=== PATIENT | male | born 1950 | race Caucasian/White ===

== ENCOUNTER 2018-06-13 16:49 | Inpatient (IN) ==
[2018-06-13] MEDS ORDERED: Sod Chloride 0.9% Inj 1,000 ML IV.CONT SCH (17:45)
[2018-06-13 18:05] LABS: Hematocrit 41.7 % (39.0-51.0); Hemoglobin 13.8 gm/dL (13.0-17.0); Mean Corpuscular HGB Conc 33.2 % (32.0-36.0); Mean Corpuscular Hemoglobin 28.6 pg (27.0-34.0); Mean Corpuscular Volume 86.3 fL (80.0-100.0); Mean Platelet Volume 9.4 fL (7.0-11.0); Platelet Count 300 th/mm3 (150-450); Red Blood Count 4.83 mil/mm3 (4.50-5.90); Red Cell Distribution Width 16.2 % (11.6-17.2); White Blood Count 10.8 th/mm3 (4.0-11.0)
[2018-06-13 18:06] LABS: Bilirubin,Urine Large (Negative); Clarity,Urine Cloudy (Clear); Glucose,Urine (UA) 100 mg/dL (Negative); Leukocyte Esterase,Urine Negative (Negative); Nitrite,Urine Positive (Negative); Specific Gravity,Urine 1.025 (1.002-1.035)
[2018-06-13 18:07] LABS: Color,Urine Brown (Yellw/Straw)
[2018-06-13 18:08] LABS: Ictotest,Urine Positive (Negative)
[2018-06-13 18:11] LABS: RBC,Urine 0-3 /hpf (0-3)
[2018-06-13 18:12] LABS: Amorphous Sediment,Urine Few /hpf; Bacteria,Urine Moderate /hpf; Squamous Epithelial Cell,Urine 0-5 /hpf (0-5)
[2018-06-13 18:13] LABS: Hyaline Casts,Urine 0-3 /lpf (0-3); Mucus,Urine Many /lpf (Occasional)
--- NOTE | 2018-06-13 18:15 | XR ---
EXAM DATE: 06/13/2018 6:00 PM EST AGE/SEX: 67 years / Male INDICATIONS: Abdominal pain, weakness for 1 week CLINICAL DATA: This is the patient's initial encounter. Patient reports that signs and symptoms have been present for 1 week and indicates a pain score of 0/10. MEDICAL/SURGICAL HISTORY: Carcinoma, colon. None. COMPARISON: No prior exams available for comparison. FINDINGS: A single AP view of the chest demonstrates the lungs to be symmetrically aerated without evidence of mass, infiltrate or effusion. The cardiomediastinal contours are unremarkable. Osseous structures a re intact. CONCLUSION: Negative noncontrast head CT. Electronically signed by: Tomás Olivares MD 06/13/2018 6:14 PM EST
[2018-06-13 18:17] LABS: Chloride 98 meq/L (98-107); Potassium 3.8 meq/L (3.5-5.1); Sodium 136 meq/L (136-145)
[2018-06-13 18:20] LABS: Calcium 8.8 mg/dL (8.5-10.1)
[2018-06-13 18:21] LABS: Albumin 2.8 g/dL (3.4-5.0); Anion Gap 12 meq/L (5-15); Blood Urea Nitrogen 19 mg/dL (7-18); Carbon Dioxide 26.5 meq/L (21.0-32.0); Glucose,Random 79 mg/dL (74-106); Lipase 1269 U/L (73-393); Magnesium 1.9 mg/dL (1.5-2.5)
[2018-06-13 18:24] LABS: Alanine Aminotransferase 134 U/L (12-78); Aspartate Aminotransferase 322 U/L (15-37); Glomerular Filtration Rate 75 mL/min (>89)
[2018-06-13 18:25] LABS: Total Protein 7.3 g/dL (6.4-8.2)
[2018-06-13 18:26] LABS: Alkaline Phosphatase 550 U/L (45-117); Creatine Kinase 542 U/L (39-308)
[2018-06-13 18:37] LABS: Activated Partial Thrombo Time 28.4 sec (23.4-31.7); INR 1.2 Ratio
[2018-06-13 18:39] LABS: CKMB Percent 0.4 % (0.0-4.0); Creatine Kinase MB 2.4 ng/mL (0.5-3.6)
[2018-06-13 18:48] LABS: Eosinophils 1 % (0-4); Lymphocytes 23 % (9-44); Monocytes 11 % (0-8)
[2018-06-13 18:55] LABS: Platelet Estimate Normal (Normal); Platelet Morphology Normal (Normal); Target Cells 1+
--- NOTE | 2018-06-13 19:21 | ED ---
HPI General Chief complaint: Jaundice Stated complaint: Flank Pain/Yellow Eyes [id number] Time Seen by Provider: 06/13/18 17:20 History of Present Illness HPI narrative: This is a 67-year-old male with a history of colon cancer that was resected, presents today with complaints of 3-month history of poor appetite and nausea. Patient also reports that he is noticed over the last few days that has become more yellow. Patient denies any fevers, chills. He denies any abdominal pain. He does report bilateral flank pain. He states the pain is worse on the left. He denies any dysuria, urgency, frequency. There are no other complaints at the time of my examination. Related Data Previous Rx's Medication Instructions Recorded cefuroxime axetil 500 mg PO Q12H #6 tab 06/17/18 ondansetron [Zofran ODT] 8 mg PO TID PRN #30 tab 06/17/18 Allergies Allergy/AdvReac Type Severity Reaction Status Date / Time No Known Allergies Allergy Verified 06/13/18 17:05 Review of Systems ROS: all other systems reviewed are negative Constitutional Denies chills and Denies fever(s) Eyes Denies blurry vision, Denies eye discharge and Reports other (Jaundice) ENT Reports system reviewed and no additional complaints, except as docu Cardiovascular Denies chest pain and Denies dyspnea Respiratory Denies chest congestion, Denies cough and Denies dyspnea Gastrointestinal Reports abdominal pain, Reports early satiety, Denies diarrhea, Reports nausea and Denies vomiting Genitourinary Denies difficulty urinating, Reports flank pain (Bilateral) and Reports other ( Dark or yellow or color urine) Musculoskeletal Reports back pain (Bilateral flank) and Denies deformity Integumentary/Breasts Denies pruritus and Reports other (Yellowing) Neurologic Denies dizziness, Denies headache(s), Denies sensory deficit, Denies paresthesias and Reports weakness PMFSH Medical History Medical History History of chemotherapy (Acute) History of colon cancer (Acute) Surgical History Surgical History History of cholecystectomy (Acute ~07/20/13) History of colon resection (Acute ~07/20/13) Family History Family History Other Family history not known due to adoption Social History Social History Substance History: No History of Abuse Second Hand Smoke Exposure: No Smoking Status: Former smoker Tobacco Type: Cigarettes How Often Do You Have a Drink Containing Alcohol: Never Recent Travel in [place] within the Last 8 Weeks: No Recent Out of Country Travel within the Last 8 Weeks: No Immunization History Tetanus Immunization: <5 Years Exam Narrative Exam Narrative: GENERAL: Well-developed well-nourished male who appears obviously jaundiced. Patient also has scleral icterus. SKIN: Focused skin assessment warm/dry. Patient has yellow coloration to his skin. HEAD: Atraumatic. Normocephalic. EYES: Extraocular muscles were intact. Patient has obvious icteric sclera. No injection or drainage. ENT: No nasal bleeding or discharge. Mucous membranes pink and slightly dry. NECK: Trachea midline. Supple. CARDIOVASCULAR: Regular rate and rhythm. No murmur appreciated. RESPIRATORY: No accessory muscle use. Clear to auscultation. Breath sounds equal bilaterally. GASTROINTESTINAL: Abdomen soft, non-tender, nondistended. Questionable hepatomegaly. No rebound or guarding. No epigastric discomfort. MUSCULOSKELETAL: No obvious deformities. No clubbing. No cyanosis. No edema. NEUROLOGICAL: Awake and alert. No obvious cranial nerve deficits. Motor grossly within normal limits. Normal speech. Course Initial Documented Vital Signs Temperature 98.3 F 06/13/18 17:02 Pulse Rate 97 H 06/13/18 17:02 Respiratory Rate 16 06/13/18 17:02 Blood Pressure 155/83 H 06/13/18 17:02 Pulse Oximetry 98 06/13/18 17:02 Last Documented Vital Signs Temperature 98.0 F 06/17/18 12:00 Pulse Rate 86 06/17/18 12:00 Respiratory Rate 16 06/17/18 12:00 Blood Pressure 115/76 06/17/18 12:00 Pulse Oximetry 97 06/17/18 12:00 Sign Out Sign Out Data: Patient Sign Out occurred on 06/13/18 at 19:43. Patient's care was discussed, and care was transferred from Souleymane Peterson MD to Po Carter. Sign Out Comment: 67-year-old male with a history of colon cancer, presents today with 3-month history of poor appetite and not feeling well. Patient is obviously jaundiced. His LFTs are elevated including his lipase. The patient is status post cholecystectomy when he had his colon resection for his colon cancer. A CT scan is ordered and is pending at this time. Patient has evidence of a UTI. He has been given Rocephin 1 g IV x1 dose. He has been signed out to Dr. Carter who was replacement at change of shift. Anticipate the patient will need admission. Question is whether or not he has any acute surgical issue. Last updated by Souleymane Peterson MD at 06/13/18 19:42 Post-Handoff Eval: 67-year-old male came to the emergency room with history of jaundice. On exam he had an enlarged liver. He was seen by the previous ER physician. Blood test revealed significantly elevated bilirubin and liver function enzymes. Sign out was to follow-up on the CT abdomen and pelvis. A CT of the chest was added to rule out metastases. CT abdomen shows a large hepatic mass. As per the radiologist hepatocellular carcinoma seems to be a high possibility. 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 I put a call out for the screening tech. Patient at the least will require a biliary stent for his obstructive jaundice. Awaiting to speak with the screening tech. 9:58 PM case was discussed with Dr. Vieira from gastroenterology. He agrees with the stent placement. He wants the patient to be transferred to the main hospital since it will require ERCP. Waiting for the hospitalist to call back for admission. Medical Decision Making MDM Narrative Medical decision making narrative: 67-year-old male presents with 3-month history of poor appetite and general malaise. Patient presents today with obvious jaundice. The patient has elevated liver enzymes including pancreatic enzymes. He does have a prominent liver on exam. CT scan is pending at this time. He will be signed out to the oncoming physician. Disposition will be per her. Anticipate the patient will be admitted to the hospital. Medical Screen Exam Complete: Yes Emergency Medical Condition: Yes Differential Diagnosis Differential Diagnosis: Acute biliary obstruction versus pancreatic or liver mass versus cirrhosis versus neoplastic syndrome Lab Data Result diagrams: 06/17/18 06:31 06/17/18 06:31 Lab Results 06/13/18 06/13/18 06/13/18 Range/Units 17:10 17:30 17:30 CBC w Diff Slide review pending WBC 10.8 (4.0-11.0) th/mm3 RBC 4.83 (4.50-5.90) mil/mm3 Hgb 13.8 (13.0-17.0) gm/dL Hct 41.7 (39.0-51.0) % MCV 86.3 (80.0-100.0) fL MCH 28.6 (27.0-34.0) pg MCHC 33.2 (32.0-36.0) % RDW 16.2 (11.6-17.2) % Plt Count 300 (150-450) th/mm3 MPV 9.4 (7.0-11.0) fL Prelim Diff (Auto) WBC Differential Manual diff final Seg Neuts % (Manual) 60 (16-70) % Band Neuts % (Manual) 5 (0-6) % Lymphocytes % (Manual) 23 (9-44) % Monocytes % (Manual) 11 H (0-8) % Eosinophils % (Manual) 1 (0-4) % Basophils % (Manual) (0-2) % Abs Neuts (Manual) 7.0 (1.8-7.7) th/mm3 Differential Comment . Platelet Estimate Normal (Normal) Platelet Morphology Normal (Normal) RBC Morphology (Normal) Target Cells 1+ H (None) PT 12.0 H (9.8-11.6) sec INR 1.2 Ratio APTT 28.4 (23.4-31.7) sec Sodium (136-145) meq/L Potassium (3.5-5.1) meq/L Chloride (98-107) meq/L Carbon Dioxide (21.0-32.0) meq/L Anion Gap (5-15) meq/L BUN (7-18) mg/dL Creatinine (0.60-1.30) mg/dL Estimated GFR (>89) mL/min Random Glucose (74-106) mg/dL Hemoglobin A1c (4.3-6.0) % Calcium (8.5-10.1) mg/dL Phosphorus (2.5-4.9) mg/dL Magnesium (1.5-2.5) mg/dL Total Bilirubin (0.2-1.0) mg/dL AST (15-37) U/L ALT (12-78) U/L Alkaline Phosphatase (45-117) U/L Ammonia (11-32) mcmol/L Total Creatine Kinase (39-308) U/L CK-MB (CK-2) (0.5-3.6) ng/mL CK-MB (CK-2) % (0.0-4.0) % Troponin I (0.02-0.05) ng/mL Total Protein (6.4-8.2) g/dL Albumin (3.4-5.0) g/dL Amylase (25-115) U/L Lipase (73-393) U/L Tumor Marker AFP (0.5-8.0) ng/mL Carcinoembryonic Ag (0.2-5.0) ng/mL CA 19-9 Antigen (0.0-35.0) U/mL TSH (0.358-3.740) uIU/mL Free T4 (0.76-1.46) ng/dL Urine Color Brown H (Yellw/Straw) Urine Clarity Cloudy H (Clear) Urine pH 5.0 (5.0-8.5) Ur Specific [place] 1.025 (1.002-1.035) Urine Protein 100 H (Neg-Trace) mg/dL Urine Glucose (UA) 100 H (Negative) mg/dL Urine Ketones 15 H (Negative) mg/dL Urine Occult Blood Negative (Negative) Urine Nitrate Positive H (Negative) Urine Bilirubin Large H (Negative) Urine Ictotest Positive H (Negative) Urine Urobilinogen 1.0 (Less than 2) mg/dL Ur Leukocyte Esterase Negative (Negative) Urine RBC 0-3 (0-3) /hpf Urine WBC 9-20 H (0-5) /hpf Ur Squamous Epith Cells 0-5 (0-5) /hpf Amorphous Sediment Few H (None) /hpf Urine Bacteria Moderate H (None) /hpf Hyaline Casts 0-3 (0-3) /lpf Urine Mucus Many H (Occasional) /lpf Micro UA Comment Culture indicated Ur Microscopic Review Microscopic reviewed Urine Culture Comments Culture indicated Blood Type Antibody Screen 06/13/18 06/13/18 06/13/18 Range/Units 17:30 17:30 17:55 CBC w Diff WBC (4.0-11.0) th/mm3 RBC (4.50-5.90) mil/mm3 Hgb (13.0-17.0) gm/dL Hct (39.0-51.0) % MCV (80.0-100.0) fL MCH (27.0-34.0) pg MCHC (32.0-36.0) % RDW (11.6-17.2) % Plt Count (150-450) th/mm3 MPV (7.0-11.0) fL Prelim Diff (Auto) WBC Differential Seg Neuts % (Manual) (16-70) % Band Neuts % (Manual) (0-6) % Lymphocytes % (Manual) (9-44) % Monocytes % (Manual) (0-8) % Eosinophils % (Manual) (0-4) % Basophils % (Manual) (0-2) % Abs Neuts (Manual) (1.8-7.7) th/mm3 Differential Comment Platelet Estimate (Normal) Platelet Morphology (Normal) RBC Morphology (Normal) Target Cells (None) PT (9.8-11.6) sec INR Ratio APTT (23.4-31.7) sec Sodium 136 (136-145) meq/L Potassium 3.8 (3.5-5.1) meq/L Chloride 98 (98-107) meq/L Carbon Dioxide 26.5 (21.0-32.0) meq/L Anion Gap 12 (5-15) meq/L BUN 19 H (7-18) mg/dL Creatinine 1.00 (0.60-1.30) mg/dL Estimated GFR 75 L (>89) mL/min Random Glucose 79 (74-106) mg/dL Hemoglobin A1c (4.3-6.0) % Calcium 8.8 (8.5-10.1) mg/dL Phosphorus (2.5-4.9) mg/dL Magnesium 1.9 (1.5-2.5) mg/dL Total Bilirubin 17.5 H (0.2-1.0) mg/dL AST 322 H (15-37) U/L ALT 134 H (12-78) U/L Alkaline Phosphatase 550 H (45-117) U/L Ammonia 14 (11-32) mcmol/L Total Creatine Kinase 542 H (39-308) U/L CK-MB (CK-2) 2.4 (0.5-3.6) ng/mL CK-MB (CK-2) % 0.4 (0.0-4.0) % Troponin I Less than 0.02 L (0.02-0.05) ng/mL Total Protein 7.3 (6.4-8.2) g/dL Albumin 2.8 L (3.4-5.0) g/dL Amylase (25-115) U/L Lipase 1269 H (73-393) U/L Tumor Marker AFP (0.5-8.0) ng/mL Carcinoembryonic Ag (0.2-5.0) ng/mL CA 19-9 Antigen (0.0-35.0) U/mL TSH (0.358-3.740) uIU/mL Free T4 (0.76-1.46) ng/dL Urine Color (Yellw/Straw) Urine Clarity (Clear) Urine pH (5.0-8.5) Ur Specific [place] (1.002-1.035) Urine Protein (Neg-Trace) mg/dL Urine Glucose (UA) (Negative) mg/dL Urine Ketones (Negative) mg/dL Urine Occult Blood (Negative) Urine Nitrate (Negative) Urine Bilirubin (Negative) Urine Ictotest (Negative) Urine Urobilinogen (Less than 2) mg/dL Ur Leukocyte Esterase (Negative) Urine RBC (0-3) /hpf Urine WBC (0-5) /hpf Ur Squamous Epith Cells (0-5) /hpf Amorphous Sediment (None) /hpf Urine Bacteria (None) /hpf Hyaline Casts (0-3) /lpf Urine Mucus (Occasional) /lpf Micro UA Comment Ur Microscopic Review Urine Culture Comments Blood Type O Positive Antibody Screen Negative 06/14/18 06/14/18 06/14/18 Range/Units 06:25 06:25 06:25 CBC w Diff WBC 8.5 (4.0-11.0) th/mm3 RBC 4.09 L (4.50-5.90) mil/mm3 Hgb 12.4 L (13.0-17.0) gm/dL Hct 35.8 L (39.0-51.0) % MCV 87.6 (80.0-100.0) fL MCH 30.4 (27.0-34.0) pg MCHC 34.7 (32.0-36.0) % RDW 16.7 (11.6-17.2) % Plt Count 232 (150-450) th/mm3 MPV 9.4 (7.0-11.0) fL Prelim Diff (Auto) Manual diff required WBC Differential Manual diff final Seg Neuts % (Manual) 75 H (16-70) % Band Neuts % (Manual) 1 (0-6) % Lymphocytes % (Manual) 18 (9-44) % Monocytes % (Manual) 3 (0-8) % Eosinophils % (Manual) 2 (0-4) % Basophils % (Manual) 1 (0-2) % Abs Neuts (Manual) 6.5 (1.8-7.7) th/mm3 Differential Comment . Platelet Estimate Normal (Normal) Platelet Morphology Normal (Normal) RBC Morphology Normal (Normal) Target Cells (None) PT 12.6 H (9.8-11.6) sec INR 1.2 Ratio APTT (23.4-31.7) sec Sodium 137 (136-145) meq/L Potassium 3.7 (3.5-5.1) meq/L Chloride 104 (98-107) meq/L Carbon Dioxide 22.8 (21.0-32.0) meq/L Anion Gap 10 (5-15) meq/L BUN 16 (7-18) mg/dL Creatinine 0.81 (0.60-1.30) mg/dL Estimated GFR Greater than 89 (>89) mL/min Random Glucose 80 (74-106) mg/dL Hemoglobin A1c (4.3-6.0) % Calcium 8.6 (8.5-10.1) mg/dL Phosphorus (2.5-4.9) mg/dL Magnesium (1.5-2.5) mg/dL Total Bilirubin 15.9 H (0.2-1.0) mg/dL AST 260 H (15-37) U/L ALT 109 H (12-78) U/L Alkaline Phosphatase 469 H (45-117) U/L Ammonia (11-32) mcmol/L Total Creatine Kinase (39-308) U/L CK-MB (CK-2) (0.5-3.6) ng/mL CK-MB (CK-2) % (0.0-4.0) % Troponin I (0.02-0.05) ng/mL Total Protein 6.1 L D (6.4-8.2) g/dL Albumin 2.3 L (3.4-5.0) g/dL Amylase (25-115) U/L Lipase 165 (73-393) U/L Tumor Marker AFP (0.5-8.0) ng/mL Carcinoembryonic Ag (0.2-5.0) ng/mL CA 19-9 Antigen (0.0-35.0) U/mL TSH (0.358-3.740) uIU/mL Free T4 (0.76-1.46) ng/dL Urine Color (Yellw/Straw) Urine Clarity (Clear) Urine pH (5.0-8.5) Ur Specific [place] (1.002-1.035) Urine Protein (Neg-Trace) mg/dL Urine Glucose (UA) (Negative) mg/dL Urine Ketones (Negative) mg/dL Urine Occult Blood (Negative) Urine Nitrate (Negative) Urine Bilirubin (Negative) Urine Ictotest (Negative) Urine Urobilinogen (Less than 2) mg/dL Ur Leukocyte Esterase (Negative) Urine RBC (0-3) /hpf Urine WBC (0-5) /hpf Ur Squamous Epith Cells (0-5) /hpf Amorphous Sediment (None) /hpf Urine Bacteria (None) /hpf Hyaline Casts (0-3) /lpf Urine Mucus (Occasional) /lpf Micro UA Comment Ur Microscopic Review Urine Culture Comments Blood Type Antibody Screen 06/14/18 06/14/18 06/15/18 Range/Units 10:54 10:54 06:36 CBC w Diff WBC (4.0-11.0) th/mm3 RBC (4.50-5.90) mil/mm3 Hgb (13.0-17.0) gm/dL Hct (39.0-51.0) % MCV (80.0-100.0) fL MCH (27.0-34.0) pg MCHC (32.0-36.0) % RDW (11.6-17.2) % Plt Count (150-450) th/mm3 MPV (7.0-11.0) fL Prelim Diff (Auto) WBC Differential Seg Neuts % (Manual) (16-70) % Band Neuts % (Manual) (0-6) % Lymphocytes % (Manual) (9-44) % Monocytes % (Manual) (0-8) % Eosinophils % (Manual) (0-4) % Basophils % (Manual) (0-2) % Abs Neuts (Manual) (1.8-7.7) th/mm3 Differential Comment Platelet Estimate (Normal) Platelet Morphology (Normal) RBC Morphology (Normal) Target Cells (None) PT (9.8-11.6) sec INR Ratio APTT (23.4-31.7) sec Sodium 140 (136-145) meq/L Potassium 3.7 (3.5-5.1) meq/L Chloride 107 (98-107) meq/L Carbon Dioxide 25.5 (21.0-32.0) meq/L Anion Gap 8 (5-15) meq/L BUN 12 (7-18) mg/dL Creatinine 0.71 (0.60-1.30) mg/dL Estimated GFR Greater than 89 (>89) mL/min Random Glucose 81 (74-106) mg/dL Hemoglobin A1c (4.3-6.0) % Calcium 7.6 L D (8.5-10.1) mg/dL Phosphorus (2.5-4.9) mg/dL Magnesium 1.8 (1.5-2.5) mg/dL Total Bilirubin 14.6 H (0.2-1.0) mg/dL AST 284 H (15-37) U/L ALT 109 H (12-78) U/L Alkaline Phosphatase 461 H (45-117) U/L Ammonia (11-32) mcmol/L Total Creatine Kinase (39-308) U/L CK-MB (CK-2) (0.5-3.6) ng/mL CK-MB (CK-2) % (0.0-4.0) % Troponin I (0.02-0.05) ng/mL Total Protein 5.8 L (6.4-8.2) g/dL Albumin 2.1 L (3.4-5.0) g/dL Amylase (25-115) U/L Lipase (73-393) U/L Tumor Marker AFP 2.2 2.1 (0.5-8.0) ng/mL Carcinoembryonic Ag 1518.2 H 1426.4 H (0.2-5.0) ng/mL CA 19-9 Antigen 941.2 H (0.0-35.0) U/mL TSH (0.358-3.740) uIU/mL Free T4 (0.76-1.46) ng/dL Urine Color (Yellw/Straw) Urine Clarity (Clear) Urine pH (5.0-8.5) Ur Specific [place] (1.002-1.035) Urine Protein (Neg-Trace) mg/dL Urine Glucose (UA) (Negative) mg/dL Urine Ketones (Negative) mg/dL Urine Occult Blood (Negative) Urine Nitrate (Negative) Urine Bilirubin (Negative) Urine Ictotest (Negative) Urine Urobilinogen (Less than 2) mg/dL Ur Leukocyte Esterase (Negative) Urine RBC (0-3) /hpf Urine WBC (0-5) /hpf Ur Squamous Epith Cells (0-5) /hpf Amorphous Sediment (None) /hpf Urine Bacteria (None) /hpf Hyaline Casts (0-3) /lpf Urine Mucus (Occasional) /lpf Micro UA Comment Ur Microscopic Review Urine Culture Comments Blood Type Antibody Screen 06/15/18 06/16/18 06/16/18 Range/Units 06:36 04:56 04:56 CBC w Diff WBC 10.1 (4.0-11.0) th/mm3 RBC 4.37 L (4.50-5.90) mil/mm3 Hgb 13.4 (13.0-17.0) gm/dL Hct 38.3 L (39.0-51.0) % MCV 87.8 (80.0-100.0) fL MCH 30.6 (27.0-34.0) pg MCHC 34.9 (32.0-36.0) % RDW 17.4 H (11.6-17.2) % Plt Count 252 (150-450) th/mm3 MPV 8.7 (7.0-11.0) fL Prelim Diff (Auto) Manual diff required WBC Differential Manual diff final Seg Neuts % (Manual) 69 (16-70) % Band Neuts % (Manual) 2 (0-6) % Lymphocytes % (Manual) 17 (9-44) % Monocytes % (Manual) 6 (0-8) % Eosinophils % (Manual) 4 (0-4) % Basophils % (Manual) 2 (0-2) % Abs Neuts (Manual) 7.2 (1.8-7.7) th/mm3 Differential Comment . Platelet Estimate Normal (Normal) Platelet Morphology Normal (Normal) RBC Morphology (Normal) Target Cells 1+ H (None) PT 12.5 H (9.8-11.6) sec INR 1.2 Ratio APTT (23.4-31.7) sec Sodium (136-145) meq/L Potassium (3.5-5.1) meq/L Chloride (98-107) meq/L Carbon Dioxide (21.0-32.0) meq/L Anion Gap (5-15) meq/L BUN (7-18) mg/dL Creatinine (0.60-1.30) mg/dL Estimated GFR (>89) mL/min Random Glucose (74-106) mg/dL Hemoglobin A1c (4.3-6.0) % Calcium (8.5-10.1) mg/dL Phosphorus (2.5-4.9) mg/dL Magnesium (1.5-2.5) mg/dL Total Bilirubin (0.2-1.0) mg/dL AST (15-37) U/L ALT (12-78) U/L Alkaline Phosphatase (45-117) U/L Ammonia (11-32) mcmol/L Total Creatine Kinase (39-308) U/L CK-MB (CK-2) (0.5-3.6) ng/mL CK-MB (CK-2) % (0.0-4.0) % Troponin I (0.02-0.05) ng/mL Total Protein (6.4-8.2) g/dL Albumin (3.4-5.0) g/dL Amylase (25-115) U/L Lipase (73-393) U/L Tumor Marker AFP (0.5-8.0) ng/mL Carcinoembryonic Ag (0.2-5.0) ng/mL CA 19-9 Antigen 951.9 H (0.0-35.0) U/mL TSH (0.358-3.740) uIU/mL Free T4 (0.76-1.46) ng/dL Urine Color (Yellw/Straw) Urine Clarity (Clear) Urine pH (5.0-8.5) Ur Specific [place] (1.002-1.035) Urine Protein (Neg-Trace) mg/dL Urine Glucose (UA) (Negative) mg/dL Urine Ketones (Negative) mg/dL Urine Occult Blood (Negative) Urine Nitrate (Negative) Urine Bilirubin (Negative) Urine Ictotest (Negative) Urine Urobilinogen (Less than 2) mg/dL Ur Leukocyte Esterase (Negative) Urine RBC (0-3) /hpf Urine WBC (0-5) /hpf Ur Squamous Epith Cells (0-5) /hpf Amorphous Sediment (None) /hpf Urine Bacteria (None) /hpf Hyaline Casts (0-3) /lpf Urine Mucus (Occasional) /lpf Micro UA Comment Ur Microscopic Review Urine Culture Comments Blood Type Antibody Screen 06/16/18 06/16/18 06/16/18 Range/Units 04:56 04:56 04:56 CBC w Diff WBC (4.0-11.0) th/mm3 RBC (4.50-5.90) mil/mm3 Hgb (13.0-17.0) gm/dL Hct (39.0-51.0) % MCV (80.0-100.0) fL MCH (27.0-34.0) pg MCHC (32.0-36.0) % RDW (11.6-17.2) % Plt Count (150-450) th/mm3 MPV (7.0-11.0) fL Prelim Diff (Auto) WBC Differential Seg Neuts % (Manual) (16-70) % Band Neuts % (Manual) (0-6) % Lymphocytes % (Manual) (9-44) % Monocytes % (Manual) (0-8) % Eosinophils % (Manual) (0-4) % Basophils % (Manual) (0-2) % Abs Neuts (Manual) (1.8-7.7) th/mm3 Differential Comment Platelet Estimate (Normal) Platelet Morphology (Normal) RBC Morphology (Normal) Target Cells (None) PT (9.8-11.6) sec INR Ratio APTT (23.4-31.7) sec Sodium 138 (136-145) meq/L Potassium 3.7 (3.5-5.1) meq/L Chloride 104 (98-107) meq/L Carbon Dioxide 24.4 (21.0-32.0) meq/L Anion Gap 10 (5-15) meq/L BUN 12 (7-18) mg/dL Creatinine 0.75 (0.60-1.30) mg/dL Estimated GFR Greater than 89 (>89) mL/min Random Glucose 84 (74-106) mg/dL Hemoglobin A1c 4.9 (4.3-6.0) % Calcium 8.0 L (8.5-10.1) mg/dL Phosphorus 2.3 L (2.5-4.9) mg/dL Magnesium 1.8 (1.5-2.5) mg/dL Total Bilirubin 16.9 H (0.2-1.0) mg/dL AST 311 H (15-37) U/L ALT 125 H (12-78) U/L Alkaline Phosphatase 525 H (45-117) U/L Ammonia 31 (11-32) mcmol/L Total Creatine Kinase (39-308) U/L CK-MB (CK-2) (0.5-3.6) ng/mL CK-MB (CK-2) % (0.0-4.0) % Troponin I (0.02-0.05) ng/mL Total Protein 6.5 D (6.4-8.2) g/dL Albumin 2.3 L (3.4-5.0) g/dL Amylase 32 (25-115) U/L Lipase 147 (73-393) U/L Tumor Marker AFP (0.5-8.0) ng/mL Carcinoembryonic Ag (0.2-5.0) ng/mL CA 19-9 Antigen (0.0-35.0) U/mL TSH 2.690 (0.358-3.740) uIU/mL Free T4 1.40 (0.76-1.46) ng/dL Urine Color (Yellw/Straw) Urine Clarity (Clear) Urine pH (5.0-8.5) Ur Specific [place] (1.002-1.035) Urine Protein (Neg-Trace) mg/dL Urine Glucose (UA) (Negative) mg/dL Urine Ketones (Negative) mg/dL Urine Occult Blood (Negative) Urine Nitrate (Negative) Urine Bilirubin (Negative) Urine Ictotest (Negative) Urine Urobilinogen (Less than 2) mg/dL Ur Leukocyte Esterase (Negative) Urine RBC (0-3) /hpf Urine WBC (0-5) /hpf Ur Squamous Epith Cells (0-5) /hpf Amorphous Sediment (None) /hpf Urine Bacteria (None) /hpf Hyaline Casts (0-3) /lpf Urine Mucus (Occasional) /lpf Micro UA Comment Ur Microscopic Review Urine Culture Comments Blood Type Antibody Screen 06/17/18 06/17/18 Range/Units 06:31 06:31 CBC w Diff WBC 8.2 (4.0-11.0) th/mm3 RBC 3.99 L (4.50-5.90) mil/mm3 Hgb 12.3 L (13.0-17.0) gm/dL Hct 35.2 L (39.0-51.0) % MCV 88.2 (80.0-100.0) fL MCH 30.7 (27.0-34.0) pg MCHC 34.8 (32.0-36.0) % RDW 17.3 H (11.6-17.2) % Plt Count 242 (150-450) th/mm3 MPV 9.2 (7.0-11.0) fL Prelim Diff (Auto) Manual diff required WBC Differential Manual diff final Seg Neuts % (Manual) 77 H (16-70) % Band Neuts % (Manual) 5 (0-6) % Lymphocytes % (Manual) 9 (9-44) % Monocytes % (Manual) 8 (0-8) % Eosinophils % (Manual) 1 (0-4) % Basophils % (Manual) (0-2) % Abs Neuts (Manual) 6.7 (1.8-7.7) th/mm3 Differential Comment . Platelet Estimate Normal (Normal) Platelet Morphology Normal (Normal) RBC Morphology (Normal) Target Cells 1+ H (None) PT (9.8-11.6) sec INR Ratio APTT (23.4-31.7) sec Sodium 138 (136-145) meq/L Potassium 3.8 (3.5-5.1) meq/L Chloride 105 (98-107) meq/L Carbon Dioxide 24.9 (21.0-32.0) meq/L Anion Gap 8 (5-15) meq/L BUN 12 (7-18) mg/dL Creatinine 0.79 (0.60-1.30) mg/dL Estimated GFR Greater than 89 (>89) mL/min Random Glucose 87 (74-106) mg/dL Hemoglobin A1c (4.3-6.0) % Calcium 7.8 L (8.5-10.1) mg/dL Phosphorus 2.4 L (2.5-4.9) mg/dL Magnesium 1.8 (1.5-2.5) mg/dL Total Bilirubin 17.0 H (0.2-1.0) mg/dL AST 301 H (15-37) U/L ALT 124 H (12-78) U/L Alkaline Phosphatase 531 H (45-117) U/L Ammonia (11-32) mcmol/L Total Creatine Kinase (39-308) U/L CK-MB (CK-2) (0.5-3.6) ng/mL CK-MB (CK-2) % (0.0-4.0) % Troponin I (0.02-0.05) ng/mL Total Protein 5.9 L D (6.4-8.2) g/dL Albumin 2.1 L (3.4-5.0) g/dL Amylase (25-115) U/L Lipase (73-393) U/L Tumor Marker AFP (0.5-8.0) ng/mL Carcinoembryonic Ag (0.2-5.0) ng/mL CA 19-9 Antigen (0.0-35.0) U/mL TSH (0.358-3.740) uIU/mL Free T4 (0.76-1.46) ng/dL Urine Color (Yellw/Straw) Urine Clarity (Clear) Urine pH (5.0-8.5) Ur Specific [place] (1.002-1.035) Urine Protein (Neg-Trace) mg/dL Urine Glucose (UA) (Negative) mg/dL Urine Ketones (Negative) mg/dL Urine Occult Blood (Negative) Urine Nitrate (Negative) Urine Bilirubin (Negative) Urine Ictotest (Negative) Urine Urobilinogen (Less than 2) mg/dL Ur Leukocyte Esterase (Negative) Urine RBC (0-3) /hpf Urine WBC (0-5) /hpf Ur Squamous Epith Cells (0-5) /hpf Amorphous Sediment (None) /hpf Urine Bacteria (None) /hpf Hyaline Casts (0-3) /lpf Urine Mucus (Occasional) /lpf Micro UA Comment Ur Microscopic Review Urine Culture Comments Blood Type Antibody Screen Imaging Data Radiologist's impression: Chest CT 06/13/18 00:00 CONCLUSION: 1. Numerous bilateral pulmonary metastasis. 2. Large mass involving the liver. Please see abdomen CT for further details. 3. Mild right hilar adenopathy. Chest X-Ray 06/13/18 17:41 CONCLUSION: Negative noncontrast head CT. Abdomen/Pelvis CT 06/13/18 18:52 CONCLUSION: 1. Diffuse bilateral lung metastatic disease. 2. Large invasive mass involving the right and left lobes of the liver measuring at least 20.2 cm characteristic of neoplastic disease. Hepatocellular carcinoma is the primary consideration. 3. 1.8 cm right adrenal mass. Cholangiopancreatography MRI 06/14/18 00:00 CONCLUSION: 1. Huge mass occupying almost the entire liver measuring 22.3 x 19.9 cm. There is mild intrahepatic biliary ductal dilatation involving the left lobe as well as the right lobe likely secondary to this huge mass which most likely represents hepatocellular carcinoma. There is no significant extrahepatic biliary ductal dilatation. The common bile duct is normal in caliber. 2. Small right adrenal nodule measuring 19 mm is again noted. 3. Innumerable only nodules are noted consistent with metastatic disease to the lungs. 4. T2 signal hyperintensities within the L3, L2 and L1 vertebral bodies which are indeterminate. Metastatic disease is in the differential. Liver Biopsy Ultrasound 06/16/18 00:00 CONCLUSION: 1. Uncomplicated ultrasound guided liver mass biopsy. Discharge Plan Discharge Disposition Patient Disposition: 02 Transfer To [facility] [place] Condition Condition: Fair Discharge Details Anticipated Discharge Date: 06/17/18 Discharge Comment: DC TO HOME TODAY Physicians Team ED Provider: Po Carter Primary Care Provider: Primary Care Physici,No Attending Provider: Marlo Rawls Other Providers: Aravind Vieira ; Chapo Lopez Status ED Status: Left Department Discharge Information Discharge Date/Time: 06/13/18 23:50
--- NOTE | 2018-06-13 20:29 | CT ---
EXAM DATE: 06/13/2018 8:13 PM EST AGE/SEX: 67 years / Male INDICATIONS: Abnormal chest x-ray is straightening multiple pulmonary masses. Evaluate for neoplasm. CLINICAL DATA: This is the patient's initial encounter. Patient reports that signs and symptoms have been present for 1 day and indicates a pain score of 0/10. MEDICAL/SURGICAL HISTORY: Carcinoma, colon. Colon resection. RADIATION DOSE: 15.97 CTDI (mGy) ; Combined studies COMPARISON: HPO, CHEST 1V SINGLE AP, 06/13/2018. . TECHNIQUE: Multiple contiguous axial images were obtained through the chest during bolus infusion of 95 ml Omnipaque 350 (iohexol) nonionic water-soluble contrast as a cumulative dose for multiple exa ms. Images were obtained in suspended respiration using multiple row detector helical technique. U sing automated exposure control and adjustment of the mA and/or kV according to patient size, radiati on dose was kept as low as reasonably achievable to obtain optimal diagnostic quality images. DICOM format image data is available electronically for review and comparison. FINDINGS: Lungs: The lungs are symmetrically aerated. There are numerous bilateral pulmonary metastasis. The l argest is in the right lung base and measures up to approximately 6.6 x 5.8 cm. The masses are inhomo geneous with high attenuation areas. The large mass in the right upper lobe as well measuring up to a pproximately 4.3 cm. There are approximately 100 masses. Mediastinum: There is good visualization of the great vessels of the middle mediastinum. There is mi ld right hilar adenopathy. The heart size is within normal limits and there is no pericardial or woul d.. Pleurae: No evidence of focal thickening or pleural effusion. Axillae: Unremarkable. Bony Structures: Unremarkable. Miscellaneous: The examination was extended to include the upper abdomen, and both adrenal glands ar e normal in size and configuration. Liver is enlarged with large inhomogeneous low-attenuation mass i nvolving the majority of the right and left lobes of the liver. CONCLUSION: 1. Numerous bilateral pulmonary metastasis. 2. Large mass involving the liver. Please see abdomen CT for further details. 3. Mild right hilar adenopathy. Electronically signed by: Tomás Olivares MD 06/13/2018 8:28 PM EST
--- NOTE | 2018-06-13 20:33 | CT ---
EXAM DATE: 06/13/2018 8:13 PM EST AGE/SEX: 67 years / Male INDICATIONS: Left abdominal pain. Jaundice. Evaluate for neoplasm. CLINICAL DATA: This is the patient's initial encounter. Patient reports that signs and symptoms have been present for 1 day and indicates a pain score of 7/10. MEDICAL/SURGICAL HISTORY: Carcinoma, colon. Colon resection. ORAL CONTRAST: No oral contrast ingested. RADIATION DOSE: 15.97 CTDI (mGy) ; Combined studies COMPARISON: No prior exams available for comparison. TECHNIQUE: Multiple contiguous axial images were obtained through the abdomen and pelvis following b olus infusion of 95 ml Omnipaque 350 (iohexol) nonionic water-soluble contrast as a cumulative dose for multiple exams. No oral contrast ingested. Using automated exposure control and adjustment of t he mA and/or kV according to patient size, radiation dose was kept as low as reasonably achievable to obtain optimal diagnostic quality images. DICOM format image data is available electronically for r eview and comparison. FINDINGS: Lower Lungs: Multiple prominent masses throughout both lower lungs, right greater than left character istic of lung metastatic disease. Liver: The liver is diffusely enlarged and there is an abnormal invasive mass throughout the right an d left lobes of liver measuring at least 20.2 x 12.2 cm. This is characteristic of neoplastic disease involving the liver. No dilated biliary ducts are demonstrated. There is no evidence of ascites. Spleen: Homogeneous density without enlargement. Pancreas: Unremarkable without mass or calcification. Kidneys: Normal in size and shape. No evidence of mass or hydronephrosis. Adrenal Glands: 1.8 cm mass associated with the right adrenal gland. The left adrenal gland is unre markable. Aorta: Atherosclerotic changes. No aneurysmal dilatation. Bowel/Mesentery: The bowel gas pattern is within normal limits. The appendix is unremarkable. There is a surgical anastomosis at the rectosigmoid junction which appears to be grossly intact. No free fl uid or loculated fluid collections are demonstrated. Abdominal Wall: Intact. Retroperitoneum: No evidence of adenopathy in the retrocrural, para-aortic, or deep pelvic regions. Bladder: Contours are smooth. Reproductive Organs: The prostate measures approximately 4.7 cm. Inguinal: The inguinal region is unremarkable without evidence of adenopathy. Bony Structures: Mild degenerative changes. CONCLUSION: 1. Diffuse bilateral lung metastatic disease. 2. Large invasive mass involving the right and left lobes of the liver measuring at least 20.2 cm ch aracteristic of neoplastic disease. Hepatocellular carcinoma is the primary consideration. 3. 1.8 cm right adrenal mass. Electronically signed by: Ilia Regalado MD 06/13/2018 8:31 PM EST
[2018-06-13] MEDS ORDERED: Morphine Inj 4 MG/ML Vial IV.PUSH PRN (22:11)
[2018-06-13] MEDS ORDERED: Bisacodyl 10 MG Supp RECTAL PRN (22:12)
[2018-06-13] MEDS: Sod Chloride 0.9% Inj 1,000 ML IV.CONT SCH (22:23)
[2018-06-14] MEDS: Sod Chloride 0.9% Inj 1,000 ML IV.CONT SCH ×3 (00:33→21:56)
--- NOTE | 2018-06-14 01:20 | P.HPIM ---
History of Present Illness Service: [facility] Primary Care Physician: No Primary Care Physician Chief Complaint: Jaundice History of Present Illness: Mr. Fish is a very pleasant 67 year old male patient with a history of colon cancer s/p proctosigmoidectomy with cholecystectomy by Dr. Tariq on 07/20/2013 who presented to the ER on 06/13/18 in [place] complaining of jaundice, poor appetite, and nausea x 3 months. He was found to have a large liver mass and the appearance of diffuse bilateral lung metastasis on imaging and was transferred the main hospital under the hospitalist service for ERCP by Dr. Vieira. The patient is seen in his hospital room shortly after arrival from [place]. He reports excessive fatigue, loss of appetite, nausea, and unintentional 30 lb weight loss over the past 3 months. He is supposed to establish with PCP Dr. Beach next week but when he and his noted jaundice yesterday and scleral icterus, they decided he could not weight to be seen. He denies shortness of breath, cough, fever, chills, vomiting, or diarrhea. He reports pasty white stools over the past few days. He also reports left flank pain. UA suggestive of UTI. The patient is adopted, family history for family of origin is unknown. He has one daughter who is alive, well, and healthy. Smoked 2 PPD x 27 years, quit 1995 and no ETOH since 1995. Inpatient Certification: I certify that the inpatient services were ordered in accordance with Medicare regulations governing the order. This includes certification that hospital inpatient services are reasonable and necessary and in the case of services not specified as inpatient-only under 42 CFR 419.22(n), that they are appropriately provided as inpatient services in accordance to with the 2-midnight benchmark under 43 CFR 412.3(e) Estimated Total Length of Stay (Days): 2 Plans for Post Hospital Care: Not yet determined Review of Systems All other systems reviewed negative except as stated [facility] - History History Provided By: Patient - Medical History Medical History: Medical History (Last Updated 06/14/18 @ 01:32 by RUTHY Stewart) History of chemotherapy - Surgical History Surgical History: Surgical History (Last Updated 06/13/18 @ 17:16 by Kylie Leyva RN) History of colon resection - Social History I have reviewed the patient's Social History: Yes - Tobacco History Second Hand Smoke Exposure: No Smoking Status: Former smoker Tobacco Type: Cigarettes - Alcohol History How Often Do You Have a Drink Containing Alcohol: Never - Substance Use History Substance History: No History of Abuse - Travel History Recent Travel in the [place] Within the Last 8 Weeks: No Recent Travel Out of the Country Within the Last 8 Weeks: No - Immunization History Tetanus Immunization: <5 Years Hx Influenza Vaccine This Season: No Medications and Allergies Active Medications: Active Medications Al Hydroxide/Mg Hydroxide (Milk Of Magnesia Liq) 30 ml PO Q12H PRN PRN Reason: Mild Constipation Bisacodyl (Dulcolax Supp) 10 mg RECTAL DAILY PRN PRN Reason: SEVERE CONSITIPATION Ceftriaxone Sodium 1,000 mg/ (Sodium Chloride) 100 mls @ 200 mls/hr IV.SIG Q24H ES Sodium Chloride (Ns Inj) 1,000 mls @ 100 mls/hr IV.CONT .Q10H ES Last Admin: 06/14/18 00:33 Dose: 100 mls/hr Lactulose (Lactulose Liq) 30 ml PO DAILY PRN PRN Reason: SEVERE CONSITIPATION Morphine Sulfate (Morphine Inj) 2 mg IV.PUSH Q4H PRN PRN Reason: PAIN 6-10 Ondansetron HCl (Zofran Inj) 4 mg IV.PUSH Q6H PRN PRN Reason: NAUSEA OR VOMITING Senna/Docusate Sodium (Daniella-Colace) 1 tab PO BID ES Sennosides (Senokot) 17.2 mg PO Q12H PRN PRN Reason: Moderate Constipation Sodium Chloride (Ns Flush) 2 ml IV.FLUSH BID ES Sodium Chloride (Ns Flush) 2 ml IV.FLUSH PRN PRN PRN Reason: FLUSH AFTER USING IV ACCESS Allergies Allergy/AdvReac Type Severity Reaction Status Date / Time No Known Allergies Allergy Verified 06/13/18 17:05 Home Medications Medication Instructions Recorded Confirmed Type No Known Home Medications 06/13/18 06/13/18 History Exam Vital signs: Vital Signs 06/13/18 17:02 06/13/18 18:01 06/13/18 22:29 Temperature 98.3 F Pulse Rate 97 H 86 78 Respiratory Rate 16 18 18 Blood Pressure 155/83 H 142/88 H 140/80 Pulse Oximetry 98 98 97 06/13/18 23:48 06/14/18 00:36 Temperature 98.2 F Pulse Rate 86 90 Respiratory Rate 18 20 Blood Pressure 142/86 H 129/76 Pulse Oximetry 97 98 Intake & Output 06/13/18 06/13/18 06/14/18 06:59 18:59 06:59 Intake Total 700 / 700 Balance 700 / 700 Weight 93.3 kg 2.722 kg Intake: IV 700 / 700 NS Inj 1,000 ML @ 100 mls/hr IV 600 / 600 .CONT .Q10H ES Rx#:[id number] Rocephin Inj 1,000 MG In NS Inj 100 / 100 100 ML @ 200 mls/hr IV.SIG ONCE ONE Rx#:[id number] Other: Weight On Admission 93.3 kg Narrative: CONSTITUTIONAL: Pleasant older male, well developed and well groomed and jaundiced. INTEGUMENTARY: Warm and dry. Few scattered bruises on bilat. upper extremity. HEAD: Atraumatic. Normocephalic. EYES: +scleral icterus. No injection or drainage. ENT: No nasal bleeding or discharge. Mucous membranes pink and moist. NECK: Trachea midline. No JVD. CARDIOVASCULAR: Regular rate and rhythm. RESPIRATORY: No accessory muscle use. Clear to auscultation. Breath sounds equal bilaterally. GASTROINTESTINAL: Normal bowel sounds. Abdomen soft, non-tender, nondistended. MUSCULOSKELETAL: Extremities without clubbing, cyanosis, or edema. No obvious deformities. NEUROLOGICAL: Awake and alert. No obvious cranial nerve deficits. Motor grossly within normal limits. Normal speech. PSYCHIATRIC: Appropriate mood and affect; insight and judgment normal. . Results - Labs CBC & Chem 7: 06/13/18 17:30 06/13/18 17:30 Labs: Short CBC 06/13/18 Range/Units 17:30 WBC 10.8 (4.0-11.0) th/mm3 Hgb 13.8 (13.0-17.0) gm/dL Hct 41.7 (39.0-51.0) % Plt Count 300 (150-450) th/mm3 [facility] 06/13/18 17:30 Sodium 136 Potassium 3.8 Chloride 98 Carbon Dioxide 26.5 BUN 19 H Creatinine 1.00 Calcium 8.8 Cardiac Enzymes 06/13/18 Range/Units 17:30 Total Creatine Kinase 542 H (39-308) U/L CK-MB (CK-2) 2.4 (0.5-3.6) ng/mL Troponin I Less than 0.02 L (0.02-0.05) ng/mL Liver Function 06/13/18 Range/Units 17:30 Total Bilirubin 17.5 H (0.2-1.0) mg/dL AST 322 H (15-37) U/L ALT 134 H (12-78) U/L Alkaline Phosphatase 550 H (45-117) U/L Albumin 2.8 L (3.4-5.0) g/dL Urine 06/13/18 Range/Units 17:10 Urine Color Brown H (Yellw/Straw) Urine Clarity Cloudy H (Clear) Urine pH 5.0 (5.0-8.5) Ur Specific [place] 1.025 (1.002-1.035) Urine Protein 100 H (Neg-Trace) mg/dL Urine Glucose (UA) 100 H (Negative) mg/dL - Imaging Impressions Chest CT 06/13/18 00:00 CONCLUSION: 1. Numerous bilateral pulmonary metastasis. 2. Large mass involving the liver. Please see abdomen CT for further details. 3. Mild right hilar adenopathy. Chest X-Ray 06/13/18 17:41 CONCLUSION: Negative noncontrast head CT. Abdomen/Pelvis CT 06/13/18 18:52 CONCLUSION: 1. Diffuse bilateral lung metastatic disease. 2. Large invasive mass involving the right and left lobes of the liver measuring at least 20.2 cm characteristic of neoplastic disease. Hepatocellular carcinoma is the primary consideration. 3. 1.8 cm right adrenal mass. Caprini VTE Risk Assessment Caprini VTE Risk Assessment: Moderate/High Risk (score >= 2) VTE Pharmacological Exception Reason: High risk for bleeding (having ERCP this a.m.) Caprini Risk Assessment Model: Point Value = 1 Point Value = 2 Point Value = 3 Point Value = 5 Age 41-60 Minor surgery BMI > 25 kg/m2 Swollen legs Varicose veins or History of unexplained or recurrent spontaneous Oral contraceptives or hormone replacement Sepsis (< 1 month) Serious lung disease, including pneumonia (< 1 month) Abnormal pulmonary function Acute myocardial infarction Congestive heart failure (< 1 month) History of inflammatory bowel disease Medical patient at bed rest Age 61-74 Arthroscopic surgery Major open surgery (> 45 min) Laparoscopic surgery (> 45 min) Malignancy Confined to bed (> 72 hours) Immobilizing plaster cast Central venous access Age >= 75 History of VTE Family history of VTE Factor V Leiden Prothrombin [id number] Lupus anticoagulant Anticardiolipin antibodies Elevated serum homocysteine Heparin-induced thrombocytopenia Other congenital or acquired thrombophilia Stroke (< 1 month) Elective arthroplasty Hip, pelvis, or leg fracture Acute spinal cord injury (< 1 month) Prophylaxis Regimen: Total Risk Factor Score Risk Level Prophylaxis Regimen 0-1 Low Early ambulation 2 Moderate Order ONE of the following: *Sequential Compression Device (SCD) *Heparin 5000 units SQ BID 3-4 Higher Order ONE of the following medications: *Heparin 5000 units SQ TID *Enoxaparin/Lovenox 40 mg SQ daily (WT < 150 kg, CrCl > 30 mL/min) *Enoxaparin/Lovenox 30 mg SQ daily (WT < 150 kg, CrCl > 10-29 mL/min) *Enoxaparin/Lovenox 30 mg SQ BID (WT < 150 kg, CrCl > 30 mL/min) AND/OR *Sequential Compression Device (SCD) 5 or more Highest Order ONE of the following medications: *Heparin 5000 units SQ TID (Preferred with Epidurals) *Enoxaparin/Lovenox 40 mg SQ daily (WT < 150 kg, CrCl > 30 mL/min) *Enoxaparin/Lovenox 30 mg SQ daily (WT < 150 kg, CrCl > 10-29 mL/min) *Enoxaparin/Lovenox 30 mg SQ BID (WT < 150 kg, CrCl > 30 mL/min) AND *Sequential Compression Device (SCD) Assessment and Plan - Plan Mr. Fish is a very pleasant 67 year old male patient with a history of colon cancer s/p proctosigmoidectomy with cholecystectomy by Dr. Tariq on 07/20/2013 who presented to the ER on 06/13/18 in [place] complaining of jaundice, poor appetite, and nausea x 3 months. He was found to have a large liver mass and the appearance of diffuse bilateral lung metastasis on imaging and was transferred the main hospital under the hospitalist service for ERCP by Dr. Vieira. Liver mass with obstructive jaundice and bilateral lung metastatic disease Pancreatitis -elevated LFTs: T. Bilirubin 17.5, AST 322, ALT 134, alkaline phosphatase 550/ Lipase 1269 -PT 12.0, INR - 1.2, apTT normal at 28.4 -consult gastroenterology for ERCP - appreciate assistance -consult Dr. Lopez, oncologist - appreciate assistance -NPO -Analgesics: Oxycodone 5 mg p.o. q4h PRN per pain scale with IV morphine for breakthrough pain -repeat labs in a.m. and follow trends UTI -Ceftriaxone 1 gm q24h -IVF hydration with D5NS at 125 cc/hr x 2 bags -await results of urine culture and adjust treatment if indicated DVT prophylaxis -SCDs Discussed Condition With: Dr. Arrieta, Patient, and RN H&P: Quality - VTE Deep Vein Thrombosis/Pulmonary Embolism Present on Admission: No
[2018-06-14] MEDS: Dextrose 5%/NaCl 0.9% Inj 1,000 ML IV.CONT SCH ×2 (03:37→13:56)
[2018-06-14 07:52] LABS: Hematocrit 35.8 % (39.0-51.0); Hemoglobin 12.4 gm/dL (13.0-17.0); Mean Corpuscular HGB Conc 34.7 % (32.0-36.0); Mean Corpuscular Hemoglobin 30.4 pg (27.0-34.0); Mean Corpuscular Volume 87.6 fL (80.0-100.0); Mean Platelet Volume 9.4 fL (7.0-11.0); Platelet Count 232 th/mm3 (150-450); Red Blood Count 4.09 mil/mm3 (4.50-5.90); Red Cell Distribution Width 16.7 % (11.6-17.2); White Blood Count 8.5 th/mm3 (4.0-11.0)
[2018-06-14 07:54] LABS: INR 1.2 Ratio; Prothrombin Time 12.6 sec (9.8-11.6)
[2018-06-14 08:12] LABS: Albumin 2.3 g/dL (3.4-5.0); Anion Gap 10 meq/L (5-15); Blood Urea Nitrogen 16 mg/dL (7-18); Calcium 8.6 mg/dL (8.5-10.1); Carbon Dioxide 22.8 meq/L (21.0-32.0); Chloride 104 meq/L (98-107); Glomerular Filtration Rate Greater Than 89 mL/min (>89); Glucose,Random 80 mg/dL (74-106); Lipase 165 U/L (73-393); Potassium 3.7 meq/L (3.5-5.1); Sodium 137 meq/L (136-145)
[2018-06-14 08:14] LABS: Alanine Aminotransferase 109 U/L (12-78); Aspartate Aminotransferase 260 U/L (15-37)
[2018-06-14 08:16] LABS: Alkaline Phosphatase 469 U/L (45-117); Total Protein 6.1 g/dL (6.4-8.2)
[2018-06-14 08:22] LABS: Eosinophils 2 % (0-4); Lymphocytes 18 % (9-44); Monocytes 3 % (0-8); Platelet Estimate Normal (Normal); Platelet Morphology Normal (Normal)
[2018-06-14 08:23] LABS: RBC Morphology Normal (Normal)
[2018-06-14] MEDS: Senna/Docusate Sodium 8.6/50 MG Tablet PO SCH ×2 (09:14→21:49)
[2018-06-14 11:50] LABS: Alpha Fetoprotein Tumor Marker 2.2 ng/mL (0.5-8.0); Carcinoembryonic Antigen 1518.2 ng/mL (0.2-5.0)
--- NOTE | 2018-06-14 12:25 | MB ---
cc: Chapo Lopez MD DATE: 06/14/2018 REASON FOR CONSULTATION: Oncology consulted to render opinion regarding patient with a history of colon cancer, now presented with liver and lung masses. HISTORY OF PRESENT ILLNESS: The patient is a 67-year-old male diagnosed with colon cancer in 2012. He had a resection of the tumor, pathologic stage III. He was given Xeloda, but it is unclear if he actually completed the whole 6-month course. He did not show up for followup after that and did not have a repeat colonoscopy until a month ago. He stated about 3 months ago, he started having increased weakness and fatigue. He lost his appetite and he has lost about 30 pounds. He has nausea without emesis. He was noted to be jaundiced. He was having rectal discomfort and went to see Dr. Fernandez last month. He said that he had a colonoscopy which showed benign polyps. He came to the emergency room because he became more jaundiced and weaker. He has had abdominal discomfort around the surgical site since the surgery. He denies any fever or chills. He denies any chest pain or palpitation. He denies shortness of breath or cough. He denies any melena, hematochezia, has no dysuria or hematuria. Denies any bone pain. He has no headache, focal numbness or weakness. PAST MEDICAL HISTORY: 1. Colon cancer. 1. Hypertension. PAST SURGICAL HISTORY: 1. Proctosigmoidectomy. 2. Cholecystectomy. 3. Colonoscopy. FAMILY HISTORY: He is adopted. He has a daughter who is healthy. SOCIAL HISTORY: He smoked 2 packs a day for 27 years, quit in 1995. He quit alcohol a long time ago. He is a waste water plant operator. ALLERGIES: NO KNOWN DRUG ALLERGIES. CURRENT MEDICATIONS: 1. Lactulose p.r.n. 2. Daniella-Colace. REVIEW OF SYSTEMS: CONSTITUTIONAL: As above. EYES: Negative. ENT: Negative. CARDIOVASCULAR: Denies any chest pressure or palpitation. RESPIRATORY: No shortness of breath, cough. GASTROINTESTINAL: As above. GENITOURINARY: Negative. MUSCULOSKELETAL: Negative. ENDOCRINE: Negative. HEMATOLOGIC: Negative. PSYCHIATRIC: Very anxious. NEUROLOGIC: Negative. DERMATOLOGY: Negative. PHYSICAL EXAMINATION: VITAL SIGNS: Temperature 98.2, blood pressure 129/76, O2 saturation 98% on room air. GENERAL: He is alert, oriented x 3, no acute distress. HEENT: Atraumatic, normocephalic. Pupils are equal, round, reactive to light. Extraocular muscles are intact. No scleral icterus. Oropharynx dry mucosa. No lesion, no thrush. No mucositis. NECK: No thyromegaly. No palpable mass. LYMPHATIC: No palpable cervical, clavicular, axillary, or inguinal lymph nodes. HEART: Regular S1, S2. No murmur. LUNGS: Clear to auscultation bilaterally. No wheezing or rhonchi. ABDOMEN: Firmness in the right upper quadrant is tender. No rebound or rigidity. Positive bowel sounds. EXTREMITIES: No cyanosis, clubbing or edema. No calf tenderness. BACK: No paravertebral tenderness. SKIN: No rash or petechiae. NEUROLOGIC: Nonfocal. LABORATORY DATA: I reviewed his blood work drawn during this hospital stay: Total bilirubin 15.9, AST 260, ALT 109, alkaline phosphatase 469. ASSESSMENT: 1. Obstructive jaundice and constitutional symptoms. The patient has not been feeling well for the last 3 months. He has nausea without vomiting. He has lost 30 pounds. He has increased jaundice. On presentation, a CT of the abdomen and pelvis showed a large mass involving bilateral hepatic lobe measured up to 20.2 cm. There was also a 1.8 cm right adrenal mass noted. CT of the chest showed more than 100 lesions in the lung, 2 largest are in the right lung and measured up to 6.6 cm. He had history of colon cancer, stage III, treated in 2014. However, he did not follow up. This is suspicious for metastatic colon cancer, although the large liver metastasis are rather unusual. Cannot totally rule out hepatocellular carcinoma. The patient, however, has no history of cirrhosis or hepatitis, which makes it less likely. He has been evaluated Gastroenterology. He is awaiting endoscopic retrograde cholangio-pancreatography. If a tissue diagnosis could be obtained with endoscopic retrograde cholangio-pancreatography, then we do not need to have a biopsy. If not, I will consult radiology to biopsy the liver mass. We will need to get adequate tissue for mutation study as well. 2. History of colon cancer, pathologic stage III. He presented with bowel habit changes and found to have a large mass in the rectosigmoid colon. He underwent resection and pathology showed moderately differentiated adenocarcinoma measuring 5.5 cm, and 2/14 lymph nodes were positive. Preop CT showed a nonspecific liver lesion, but PET scan did not show any uptake in the liver. During surgery, the liver was explored and no palpable liver metastasis. It was a pathologic stage T4 N1, or stage III. His CEA was 14.5 before treatment and trended down to 2 with treatment. He received adjuvant Xeloda, but I think he only received 5 cycles and did not show up for followup since 11/2013. 3. Hypertension. He is not on any medication. RECOMMENDATIONS: 1. Extensive discussion with the patient and his partner. 2. Check tumor markers. 3. Await cholangiopancreatography. 4. Possibly will need to consult radiology to biopsy the liver mass for tissue diagnosis and do a mutation study depending on the ERCP findings. Thank you, Dr. Yeh, for asking me to see this patient. MD GEMMA Saldivar/parth , 10:04 AM , 10:20 AM [place]
--- NOTE | 2018-06-14 12:58 | ECG ---
Date Performed: 06/13/2018 Time Performed: 17:52:16 PTAGE: 67 years EKG: Sinus rhythm LOW QRS VOLTAGE ABNORMAL ECG Since the PREVIOUS TRACING , no significant change noted PREVIOUS TRACIN07/13/2013 11.20 DOCTOR: Amari Ambrocio Interpretating Date/Time 06/14/2018 12:56:15
--- NOTE | 2018-06-14 14:20 | MB ---
cc: Aravind Vieira MD DATE: 06/14/2018 TYPE OF CONSULTATION: GI Consult REASON FOR CONSULTATION: Obstructive jaundice. HISTORY OF PRESENT ILLNESS: Mr. Fish is a 67-year-old male patient with past medical history of colorectal cancer, status post left hemicolectomy 4 years ago and has history of cholecystectomy at the same time, who presented to the emergency room complaining of jaundice, poor appetite, fatigue, nausea, loss of energy and significant weight loss. The patient had a scan done to him in the emergency room that found a large liver mass and diffuse bilateral lung metastasis. The patient was admitted for further evaluation and workup. O The workup during the hospitalization showed a bilirubin significantly elevated with increased liver enzymes . The patient is known to have colorectal cancer that was diagnosed 4 years ago, status post resection in 2013. The patient had a followup colonoscopy [address] Tariq that showed up a polyp of unknown type. The patient never had any followup imaging studies and was in poor compliance with his medical care. The patient was seen and examined and at the current time, he denies any abdominal pain, nausea, vomiting. Denies any change in bowel habit. The only symptoms are fatigue, dizziness, loss of energy, poor appetite and weight loss of 30 pounds over the last 30 years. REVIEW OF SYSTEMS: Unremarkable. All were negative other than the one mentioned in history of present illness. FAMILY HISTORY: Unremarkable. PSYCHOSOCIAL HISTORY: The patient is employed and a history of excessive alcohol use. He quit 25 years ago. History of smoking, also quit at the same time 25 years ago. Denies IV drug abuse. PAST MEDICAL AND SURGICAL HISTORY: Includes colorectal cancer, status post left hemicolectomy in 2013, history of cholecystectomy. Patient received chemotherapy for a poor compliance with followups and never had a previous imaging study. The patient also had a previous imaging study, as per the patient, showing multiple lung lesions of no significant 4 years ago and thought to be benign at that time. MEDICATIONS: Currently on: 1. Zofran. 2. Morphine sulfate. 3. Lactulose. 4. Ceftriaxone. ALLERGIES: NO KNOWN DRUG ALLERGIES. PHYSICAL EXAMINATION: GENERAL: The patient found to be comfortable, not in distress or in pain. VITAL SIGNS: Within normal limits with a pulse of 97, respiratory rate 16, blood pressure 155/85 and pulse of 98. HEAD AND NECK: The patient is deeply jaundiced, not pallor and good hydration status at this time. LUNGS: Clear to auscultation bilaterally. No crackles or wheezes. CARDIOVASCULAR: Regular rate and rhythm. No murmurs. ABDOMEN: Soft, nontender. No hepatosplenomegaly by examination. Normal bowel sounds. EXTREMITIES: Normal pulses. No edema. NEUROLOGIC: The patient is alert, oriented x3. Cranial nerves grossly intact. SKIN: No rashes. ASSESSMENT: A 67-year-old male patient with past medical history of colorectal cancer, status post resection in 2013, who presented with fatigue, loss of energy and a significant unintentional weight loss of 30 pounds over 3 months and deep jaundice, found to have a with the following problems: 1. Increase in liver enzymes with a bilirubin of 17.5 and increase in transaminitis. 2. Increase in lipase level, although the patient is not having any symptoms compatible with pancreatitis. 3. CT scan showing a lesion in the liver that is a large invasive mass involving the right and left lobe of the liver, measured around 20 cm with characteristic features of neoplasm. Primary lesion like hepatocellular carcinoma is a possibility, but no comment on the biliary tree. RECOMMENDATIONS: We will proceed with MRCP for now. Check alpha fetoprotein and other tumor markers and continue antibiotics with daily liver enzymes. Will consider ERCP if ductal dilatation seen in the MRI imaging. We will follow with you. Thank you for the consult. MD ROSEMARIE Simon/ashanti/colleen , 10:43 AM , 10:54 AM [place]
--- NOTE | 2018-06-14 16:19 | MR ---
EXAM DATE: 06/14/2018 1:47 PM EST AGE/SEX: 67 years / Male INDICATIONS: Metastatic disease. CLINICAL DATA: This is the patient's initial encounter. Patient reports that signs and symptoms have been present for 2 weeks and indicates a pain score of 3/10. MEDICAL/SURGICAL HISTORY: Carcinoma, colon. Colon resection. COMPARISON: [facility], CT ABDOMEN & PELVIS W CONTRAST, 06/13/2018. . TECHNIQUE: Multiplanar, multisequence images of the abdomen were obtained without contrast including dedicated cholangiographic images. FINDINGS: There is evidence of a huge mass occupying almost the entire liver measuring 22.3 x 19.9 cm. There is mild intrahepatic biliary ductal dilatation involving the left lobe as well as the right lobe likely secondary to this huge mass which most likely represents hepatocellular carcinoma. There is no signi ficant extrahepatic biliary ductal dilatation. The common bile duct is normal in caliber. Small right adrenal nodule measuring 19 mm is again noted. Innumerable only nodules are noted consistent with me tastatic disease to the lungs. The kidneys are unremarkable. The pancreas is normal. The spleen is no rmal. The left adrenal gland is unremarkable. Degenerative changes and scoliosis of the lumbar spine is noted. There are T2 signal hyperintensities within the L3, L2 and L1 vertebral bodies which are in determinate. Metastatic disease is in the differential. CONCLUSION: 1. Huge mass occupying almost the entire liver measuring 22.3 x 19.9 cm. There is mild intrahepatic biliary ductal dilatation involving the left lobe as well as the right lobe likely secondary to this huge mass which most likely represents hepatocellular carcinoma. There is no significant extrahepatic biliary ductal dilatation. The common bile duct is normal in caliber. 2. Small right adrenal nodule measuring 19 mm is again noted. 3. Innumerable only nodules are noted consistent with metastatic disease to the lungs. 4. T2 signal hyperintensities within the L3, L2 and L1 vertebral bodies which are indeterminate. Met astatic disease is in the differential. Electronically signed by: Rangel Gamble MD 06/14/2018 4:18 PM EST
--- NOTE | 2018-06-14 17:21 | P.PNIM ---
Subjective Interval history: Patient complaint of poor appetite, on and off nausea. No other complaints. Physical Exam Vital signs: Vital Signs 06/13/18 17:02 06/13/18 18:01 06/13/18 22:29 Temperature 98.3 F Pulse Rate 97 H 86 78 Respiratory Rate 16 18 18 Blood Pressure 155/83 H 142/88 H 140/80 Pulse Oximetry 98 98 97 06/13/18 23:48 06/14/18 00:36 06/14/18 08:00 Temperature 98.2 F 97.8 F Pulse Rate 86 90 84 Respiratory Rate 18 20 18 Blood Pressure 142/86 H 129/76 115/59 L Pulse Oximetry 97 98 98 06/14/18 12:00 06/14/18 16:00 Temperature 97.7 F 98.3 F Pulse Rate 89 85 Respiratory Rate 16 18 Blood Pressure 118/68 114/66 Pulse Oximetry 96 99 Intake & Output 06/13/18 06/14/18 06/14/18 18:59 06:59 18:59 Intake Total 700 / 700 1000 / 1000 Balance 700 / 700 1000 / 1000 Weight 93.3 kg 94.7 kg Intake: IV 700 / 700 1000 / 1000 D5W/Normal Saline Inj 1,000 ML 1000 / 1000 @ 125 mls/hr IV.CONT .Q8H ES Rx#:[id number] NS Inj 1,000 ML @ 100 mls/hr IV 600 / 600 .CONT .Q10H [facility] Rx#:[id number] Rocephin Inj 1,000 MG In NS Inj 100 / 100 100 ML @ 200 mls/hr IV.SIG ONCE ONE Rx#:[id number] Other: # Voids 1 Weight On Admission 93.3 kg Narrative: General patient in no acute distress, he has on and off nausea and poor appetite otherwise no complaints. HEENT extraocular movements are intact, clear oropharyngeal mucosa, no JVD Cardiovascular S1-S2 audible, RRR, no murmurs rubs or gallops Respiratory clear to auscultation bilaterally Abdomen soft, nontender, nondistended, normal bowel sounds, no palpable lymphadenopathy. Extremities no edema 2+ distal pulses in bilateral upper and lower extremities, no axillary palpable lymphadenopathy. No inguinal palpable lymphadenopathy. Neuro cranial nerves II through XII intact Results - Labs CBC & Chem 7: 06/14/18 06:25 12/01/18 06:25 Laboratory Results - last 24 hr 06/13/18 06/13/18 06/13/18 17:10 17:30 17:30 CBC w Diff Slide review pending WBC 10.8 RBC 4.83 Hgb 13.8 Hct 41.7 MCV 86.3 MCH 28.6 MCHC 33.2 RDW 16.2 Plt Count 300 MPV 9.4 Prelim Diff (Auto) WBC Differential Manual diff final Seg Neuts % (Manual) 60 Band Neuts % (Manual) 5 Lymphocytes % (Manual) 23 Monocytes % (Manual) 11 H Eosinophils % (Manual) 1 Basophils % (Manual) Abs Neuts (Manual) 7.0 Differential Comment . Platelet Estimate Normal Platelet Morphology Normal RBC Morphology Target Cells 1+ H PT 12.0 H INR 1.2 APTT 28.4 Sodium Potassium Chloride Carbon Dioxide Anion Gap BUN Creatinine Estimated GFR Random Glucose Calcium Magnesium Total Bilirubin AST ALT Alkaline Phosphatase Ammonia Total Creatine Kinase CK-MB (CK-2) CK-MB (CK-2) % Troponin I Total Protein Albumin Lipase Tumor Marker AFP Carcinoembryonic Ag CA 19-9 Antigen Urine Color Brown H Urine Clarity Cloudy H Urine pH 5.0 Ur Specific [place] 1.025 Urine Protein 100 H Urine Glucose (UA) 100 H Urine Ketones 15 H Urine Occult Blood Negative Urine Nitrate Positive H Urine Bilirubin Large H Urine Ictotest Positive H Urine Urobilinogen 1.0 Ur Leukocyte Esterase Negative Urine RBC 0-3 Urine WBC 9-20 H Ur Squamous Epith Cells 0-5 Amorphous Sediment Few H Urine Bacteria Moderate H Hyaline Casts 0-3 Urine Mucus Many H Micro UA Comment Culture indicated Ur Microscopic Review Microscopic reviewed Urine Culture Comments Culture indicated Blood Type Antibody Screen 06/13/18 06/13/18 06/13/18 17:30 17:30 17:55 CBC w Diff WBC RBC Hgb Hct MCV MCH MCHC RDW Plt Count MPV Prelim Diff (Auto) WBC Differential Seg Neuts % (Manual) Band Neuts % (Manual) Lymphocytes % (Manual) Monocytes % (Manual) Eosinophils % (Manual) Basophils % (Manual) Abs Neuts (Manual) Differential Comment Platelet Estimate Platelet Morphology RBC Morphology Target Cells PT INR APTT Sodium 136 Potassium 3.8 Chloride 98 Carbon Dioxide 26.5 Anion Gap 12 BUN 19 H Creatinine 1.00 Estimated GFR 75 L Random Glucose 79 Calcium 8.8 Magnesium 1.9 Total Bilirubin 17.5 H AST 322 H ALT 134 H Alkaline Phosphatase 550 H Ammonia 14 Total Creatine Kinase 542 H CK-MB (CK-2) 2.4 CK-MB (CK-2) % 0.4 Troponin I Less than 0.02 L Total Protein 7.3 Albumin 2.8 L Lipase 1269 H Tumor Marker AFP Carcinoembryonic Ag CA 19-9 Antigen Urine Color Urine Clarity Urine pH Ur Specific [place] Urine Protein Urine Glucose (UA) Urine Ketones Urine Occult Blood Urine Nitrate Urine Bilirubin Urine Ictotest Urine Urobilinogen Ur Leukocyte Esterase Urine RBC Urine WBC Ur Squamous Epith Cells Amorphous Sediment Urine Bacteria Hyaline Casts Urine Mucus Micro UA Comment Ur Microscopic Review Urine Culture Comments Blood Type O Positive Antibody Screen Negative 06/14/18 06/14/18 06/14/18 06:25 06:25 06:25 CBC w Diff WBC 8.5 RBC 4.09 L Hgb 12.4 L Hct 35.8 L MCV 87.6 MCH 30.4 MCHC 34.7 RDW 16.7 Plt Count 232 MPV 9.4 Prelim Diff (Auto) Manual diff required WBC Differential Manual diff final Seg Neuts % (Manual) 75 H Band Neuts % (Manual) 1 Lymphocytes % (Manual) 18 Monocytes % (Manual) 3 Eosinophils % (Manual) 2 Basophils % (Manual) 1 Abs Neuts (Manual) 6.5 Differential Comment . Platelet Estimate Normal Platelet Morphology Normal RBC Morphology Normal Target Cells PT 12.6 H INR 1.2 APTT Sodium 137 Potassium 3.7 Chloride 104 Carbon Dioxide 22.8 Anion Gap 10 BUN 16 Creatinine 0.81 Estimated GFR Greater than 89 Random Glucose 80 Calcium 8.6 Magnesium Total Bilirubin 15.9 H AST 260 H ALT 109 H Alkaline Phosphatase 469 H Ammonia Total Creatine Kinase CK-MB (CK-2) CK-MB (CK-2) % Troponin I Total Protein 6.1 L D Albumin 2.3 L Lipase 165 Tumor Marker AFP Carcinoembryonic Ag CA 19-9 Antigen Urine Color Urine Clarity Urine pH Ur Specific [place] Urine Protein Urine Glucose (UA) Urine Ketones Urine Occult Blood Urine Nitrate Urine Bilirubin Urine Ictotest Urine Urobilinogen Ur Leukocyte Esterase Urine RBC Urine WBC Ur Squamous Epith Cells Amorphous Sediment Urine Bacteria Hyaline Casts Urine Mucus Micro UA Comment Ur Microscopic Review Urine Culture Comments Blood Type Antibody Screen 06/14/18 06/14/18 10:54 10:54 CBC w Diff WBC RBC Hgb Hct MCV MCH MCHC RDW Plt Count MPV Prelim Diff (Auto) WBC Differential Seg Neuts % (Manual) Band Neuts % (Manual) Lymphocytes % (Manual) Monocytes % (Manual) Eosinophils % (Manual) Basophils % (Manual) Abs Neuts (Manual) Differential Comment Platelet Estimate Platelet Morphology RBC Morphology Target Cells PT INR APTT Sodium Potassium Chloride Carbon Dioxide Anion Gap BUN Creatinine Estimated GFR Random Glucose Calcium Magnesium Total Bilirubin AST ALT Alkaline Phosphatase Ammonia Total Creatine Kinase CK-MB (CK-2) CK-MB (CK-2) % Troponin I Total Protein Albumin Lipase Tumor Marker AFP 2.2 Carcinoembryonic Ag 1518.2 H CA 19-9 Antigen 941.2 H Urine Color Urine Clarity Urine pH Ur Specific [place] Urine Protein Urine Glucose (UA) Urine Ketones Urine Occult Blood Urine Nitrate Urine Bilirubin Urine Ictotest Urine Urobilinogen Ur Leukocyte Esterase Urine RBC Urine WBC Ur Squamous Epith Cells Amorphous Sediment Urine Bacteria Hyaline Casts Urine Mucus Micro UA Comment Ur Microscopic Review Urine Culture Comments Blood Type Antibody Screen Microbiology 06/13/18 17:10 Clean Catch Urine Urine Culture - Preliminary No growth in 24 hours - Imaging Impressions Chest CT 06/13/18 00:00 CONCLUSION: 1. Numerous bilateral pulmonary metastasis. 2. Large mass involving the liver. Please see abdomen CT for further details. 3. Mild right hilar adenopathy. Chest X-Ray 06/13/18 17:41 CONCLUSION: Negative noncontrast head CT. Abdomen/Pelvis CT 06/13/18 18:52 CONCLUSION: 1. Diffuse bilateral lung metastatic disease. 2. Large invasive mass involving the right and left lobes of the liver measuring at least 20.2 cm characteristic of neoplastic disease. Hepatocellular carcinoma is the primary consideration. 3. 1.8 cm right adrenal mass. Cholangiopancreatography MRI 06/14/18 00:00 CONCLUSION: 1. Huge mass occupying almost the entire liver measuring 22.3 x 19.9 cm. There is mild intrahepatic biliary ductal dilatation involving the left lobe as well as the right lobe likely secondary to this huge mass which most likely represents hepatocellular carcinoma. There is no significant extrahepatic biliary ductal dilatation. The common bile duct is normal in caliber. 2. Small right adrenal nodule measuring 19 mm is again noted. 3. Innumerable only nodules are noted consistent with metastatic disease to the lungs. 4. T2 signal hyperintensities within the L3, L2 and L1 vertebral bodies which are indeterminate. Metastatic disease is in the differential. Assessment and Plan - Plan This patient is a 67-year-old male with a diagnosis of colon cancer status post proctosigmoidectomy with cholecystectomy by Dr. Puri in July 2013. The patient presented to the emergency department and portal range on 06/13/2018 complaining of jaundice, poor appetite, weight loss of 30 pounds over 3 months, nausea for approximately 3 months. He was found to have a large liver mass and suspected lung metastasis. He was then transferred to the [facility] under our service. 1. Liver mass with obstructive jaundice and bilateral lung metastatic disease. 2. Pancreatitis Labs show elevated LFTs which are downtrending from yesterday however still elevated. Patient had an elevated lipase of 1200 which is now normalized. Patient's symptoms are not necessarily consistent with pancreatitis. GI consulted MRCP done which showed a huge mass occupying almost the entire liver measuring 22 x 19.9 cm, intrahepatic ductal dilatation likely secondary to the mass. The findings were concerning for hepatocellular carcinoma. There is also concern for metastatic disease to the L-spine. Small right adrenal nodule also noted. Apparently the patient's MRCP was not completed because he began to feel nauseous during the procedure. We will follow-up with GI and will have them evaluate the image to see if a repeat MRCP is necessary. CA 19 9 elevated, CEA elevated, AFP is normal. We will follow-up with your conditions from GI. Oncology is also evaluated the patient, the patient will likely need biopsy of the liver mass. 3. Urinary tract infection present on admission Patient is afebrile. WBC count within normal limits. Patient's urinalysis is positive. Started on Rocephin. Urine cultures will be followed up. [facility] [place]. Patient may possibly undergo ERCP tomorrow a.m.
[2018-06-15] MEDS: Sod Chloride 0.9% Inj 1,000 ML IV.CONT SCH ×4 (05:52→17:27)
[2018-06-15 08:25] LABS: Alanine Aminotransferase 109 U/L (12-78); Albumin 2.1 g/dL (3.4-5.0); Alkaline Phosphatase 461 U/L (45-117); Alpha Fetoprotein Tumor Marker 2.1 ng/mL (0.5-8.0); Anion Gap 8 meq/L (5-15); Aspartate Aminotransferase 284 U/L (15-37); Blood Urea Nitrogen 12 mg/dL (7-18); Calcium 7.6 mg/dL (8.5-10.1); Carbon Dioxide 25.5 meq/L (21.0-32.0); Carcinoembryonic Antigen 1426.4 ng/mL (0.2-5.0); Chloride 107 meq/L (98-107); Glomerular Filtration Rate Greater Than 89 mL/min (>89); Glucose,Random 81 mg/dL (74-106); Magnesium 1.8 mg/dL (1.5-2.5); Potassium 3.7 meq/L (3.5-5.1); Sodium 140 meq/L (136-145); Total Protein 5.8 g/dL (6.4-8.2)
[2018-06-15] MEDS: Senna/Docusate Sodium 8.6/50 MG Tablet PO SCH ×2 (08:47→19:59)
--- NOTE | 2018-06-15 10:49 | P.PNONC ---
Subjective Interval history: Patient still has mild abdominal pain. He denies any chest pain or shortness of breath. He had MRCP done yesterday. Objective Vital Signs/Intake & Output: Vital Signs 06/14/18 12:00 06/14/18 16:00 06/14/18 20:00 Temperature 97.7 F 98.3 F 98.2 F Pulse Rate 89 85 86 Respiratory Rate 16 18 18 Blood Pressure 118/68 114/66 131/76 Pulse Oximetry 96 99 97 06/15/18 00:00 06/15/18 08:00 Temperature 98.5 F 98.0 F Pulse Rate 76 94 H Respiratory Rate 18 18 Blood Pressure 124/73 109/71 Pulse Oximetry 94 L 96 Intake & Output 06/14/18 06/15/18 06/15/18 18:59 06:59 18:59 Intake Total 1000 / 1000 1920 / 1920 300 / 300 Balance 1000 / 1000 1920 / 1920 300 / 300 Weight 93.6 kg Intake: IV 1000 / 1000 1800 / 1800 300 / 300 D5W/Normal Saline Inj 1,000 ML 1000 / 1000 1000 / 1000 @ 125 mls/hr IV.CONT .Q8H ES Rx#:[id number] NS Inj 1,000 ML @ 100 mls/hr IV 700 / 700 300 / 300 .CONT .Q10H ES Rx#:[id number] Rocephin Inj 1,000 MG In NS Inj 100 / 100 100 ML @ 200 mls/hr IV.SIG Q24H ES Rx#:[id number] Oral 120 / 120 Other: # Voids 3 2 Date of Last Bowel Movement 06/14/18 # Bowel Movements 1 Result Diagrams: 06/14/18 06:25 06/15/18 06:36 Laboratory Results: Laboratory Results - last 24 hr 06/14/18 06/14/18 06/15/18 10:54 10:54 06:36 Sodium 140 Potassium 3.7 Chloride 107 Carbon Dioxide 25.5 Anion Gap 8 BUN 12 Creatinine 0.71 Estimated GFR Greater than 89 Random Glucose 81 Calcium 7.6 L D Magnesium 1.8 Total Bilirubin 14.6 H AST 284 H ALT 109 H Alkaline Phosphatase 461 H Total Protein 5.8 L Albumin 2.1 L Tumor Marker AFP 2.2 2.1 Carcinoembryonic Ag 1518.2 H 1426.4 H CA 19-9 Antigen 941.2 H 06/15/18 06:36 Sodium Potassium Chloride Carbon Dioxide Anion Gap BUN Creatinine Estimated GFR Random Glucose Calcium Magnesium Total Bilirubin AST ALT Alkaline Phosphatase Total Protein Albumin Tumor Marker AFP Carcinoembryonic Ag CA 19-9 Antigen 951.9 H Culture Results: Microbiology 06/13/18 17:10 Urine Culture - Preliminary Clean Catch Urine No growth in 24 hours Imaging Studies: Impressions Cholangiopancreatography MRI 06/14/18 00:00 CONCLUSION: 1. Huge mass occupying almost the entire liver measuring 22.3 x 19.9 cm. There is mild intrahepatic biliary ductal dilatation involving the left lobe as well as the right lobe likely secondary to this huge mass which most likely represents hepatocellular carcinoma. There is no significant extrahepatic biliary ductal dilatation. The common bile duct is normal in caliber. 2. Small right adrenal nodule measuring 19 mm is again noted. 3. Innumerable only nodules are noted consistent with metastatic disease to the lungs. 4. T2 signal hyperintensities within the L3, L2 and L1 vertebral bodies which are indeterminate. Metastatic disease is in the differential. Medications: Active Medications Generic Name Dose Route Start Last Admin Trade Name Freq PRN Reason Stop Dose Admin Ceftriaxone Sodium 1,000 mg/ 100 mls @ 200 mls/hr 06/14/18 21:00 06/14/18 22: 30 Sodium Chloride IV.SIG Infused Q24H ES Infusion Sodium Chloride 1,000 mls @ 100 mls/hr 06/14/18 18:00 06/15/18 08:49 Ns Inj IV.CONT 100 mls/hr .Q10H ES Administration Ondansetron HCl 4 mg 06/13/18 22:12 06/14/18 14:09 Zofran Inj IV.PUSH 4 mg Q6H PRN Administration NAUSEA OR VOMITING Senna/Docusate Sodium 1 tab 06/14/18 09:00 06/15/18 08:47 Daniella-Colace PO Not Given BID ES Sodium Chloride 2 ml 06/14/18 09:00 06/15/18 08:47 Ns Flush IV.FLUSH Not Given BID ES Objective Remarks: GENERAL: Well-nourished, well-developed patient. SKIN: Warm and dry. Jaundice. HEAD: Normocephalic. EYES: + scleral icterus. No injection or drainage. NECK: Supple, trachea midline. No JVD or lymphadenopathy. LYMPHATIC: No adenopathy. CARDIOVASCULAR: Regular rate and rhythm without murmurs. RESPIRATORY: Breath sounds equal bilaterally. No accessory muscle use. GASTROINTESTINAL: Abdomen soft, tender in right upper quadrant area, palpable mass right upper quadrant, nondistended. EXTREMITIES: No cyanosis, or edema. MUSCULOSKELETAL: Adequate muscle tone. NEUROLOGICAL: No obvious focal deficit. Awake, alert, and oriented x3. PSYCHIATRIC: Appropriate mood and affect; insight and judgment normal. Assessment/Plan - Plan 1. Obstructive jaundice and constitutional symptoms. The patient has not been feeling well for the last 3 months. He has nausea without vomiting. He has lost 30 pounds. He has increased jaundice. On presentation, a CT of the abdomen and pelvis showed a large mass involving bilateral hepatic lobe measured up to 20.2 cm. There was also a 1.8 cm right adrenal mass noted. CT of the chest showed more than 100 lesions in the lung, 2 largest are in the right lung and measured up to 6.6 cm. He had history of colon cancer, stage III, treated in 2013. However, he did not follow up. This is suspicious for metastatic colon cancer, although the large liver metastasis are rather unusual. Cannot totally rule out hepatocellular carcinoma. The patient, however, has no history of cirrhosis or hepatitis, which makes it less likely. June 15: CEA elevated around 1500 and CA 199 around 900. MRCP showed large hepatic mass with mild intrahepatic biliary dilatation but no obvious extrahepatic biliary dilatation. Gastroenterology is postponing ERCP. It appears that patient has metastatic colon cancer rather than Hepatocellular carcinoma. We will consult radiology for biopsy of the liver mass. 2. History of colon cancer, pathologic stage III. He presented with bowel habit changes and found to have a large mass in the rectosigmoid colon. He underwent resection and pathology showed moderately differentiated adenocarcinoma measuring 5.5 cm, and 2/14 lymph nodes were positive. Preop CT showed a nonspecific liver lesion, but PET scan did not show any uptake in the liver. During surgery, the liver was explored and no palpable liver metastasis. It was a pathologic stage T4 N1, or stage III. His CEA was 14.5 before treatment and trended down to 2 with treatment. He received adjuvant Xeloda, but I think he only received 5 cycles and did not show up for followup since 11/2013. 3. Hypertension. He is not on any medication. 4. Nonspecific bone lesion noted on lumbar spine on MRI. He has no bone pain. RECOMMENDATIONS: 1. Extensive discussion with the patient and his partner. Review MRCP result with patient. 2. Arrange for bone scan. 3. Consult radiology to biopsy the liver mass for tissue diagnosis and do a mutation study.
--- NOTE | 2018-06-15 11:59 | P.PNIM ---
Subjective Interval history: Chief Complaint: Jaundice History of Present Illness: Mr. Fish is a very pleasant 67 year old male patient with a history of colon cancer s/p proctosigmoidectomy with cholecystectomy by Dr. Tariq on 07/20/2013 who presented to the ER on 06/13/18 in [place] complaining of jaundice, poor appetite, and nausea x 3 months. He was found to have a large liver mass and the appearance of diffuse bilateral lung metastasis on imaging and was transferred the main hospital under the hospitalist service for ERCP by Dr. Vieira. The patient is seen in his hospital room shortly after arrival from [place]. He reports excessive fatigue, loss of appetite, nausea, and unintentional 30 lb weight loss over the past 3 months. He is supposed to establish with PCP Dr. Beach next week but when he and his noted jaundice yesterday and scleral icterus, they decided he could not weight to be seen. He denies shortness of breath, cough, fever, chills, vomiting, or diarrhea. He reports pasty white stools over the past few days. He also reports left flank pain. UA suggestive of UTI. The patient is adopted, family history for family of origin is unknown. He has one daughter who is alive, well, and healthy. Smoked 2 PPD x 27 years, quit 1995 and no ETOH since 1995. 12-1 Patient complaint of poor appetite, on and off nausea. No other complaints. 12-2 SEEN BY GI AND ONCOLOGY DR CUNNINGHAM NEED A TISSUE BIOPSY TO HELP MAKE DIAGNOSIS STILL HAS SOME ABDOMINAL PAIN HAD MRCP YESTERDAY NEEDS IR FOR TISSUE DIAGNOSIS OF LIVER HAS HX OF COLON CANCER- POSSIBLE REOCCURRENCE VS NEW PRIMARY Physical Exam Vital signs: Vital Signs 06/14/18 12:00 06/14/18 16:00 06/14/18 20:00 Temperature 97.7 F 98.3 F 98.2 F Pulse Rate 89 85 86 Respiratory Rate 16 18 18 Blood Pressure 118/68 114/66 131/76 Pulse Oximetry 96 99 97 06/15/18 00:00 06/15/18 08:00 Temperature 98.5 F 98.0 F Pulse Rate 76 94 H Respiratory Rate 18 18 Blood Pressure 124/73 109/71 Pulse Oximetry 94 L 96 Intake & Output 06/14/18 06/15/18 06/15/18 18:59 06:59 18:59 Intake Total 1000 / 1000 1920 / 1920 300 / 300 Balance 1000 / 1000 1920 / 1920 300 / 300 Weight 93.6 kg Intake: IV 1000 / 1000 1800 / 1800 300 / 300 D5W/Normal Saline Inj 1,000 ML 1000 / 1000 1000 / 1000 @ 125 mls/hr IV.CONT .Q8H ES Rx#:[id number] NS Inj 1,000 ML @ 100 mls/hr IV 700 / 700 300 / 300 .CONT .Q10H ES Rx#:[id number] Rocephin Inj 1,000 MG In NS Inj 100 / 100 100 ML @ 200 mls/hr IV.SIG Q24H ES Rx#:[id number] Oral 120 / 120 Other: # Voids 3 2 Date of Last Bowel Movement 06/14/18 # Bowel Movements 1 Narrative: General patient in no acute distress, he has on and off nausea and poor appetite otherwise no complaints. HEENT extraocular movements are intact, clear oropharyngeal mucosa, no JVD EOMI , PERRLA SOME SCLERAL ICTERUS Cardiovascular S1-S2 audible, RRR, no murmurs rubs or gallops Respiratory clear to auscultation bilaterally Abdomen soft, nontender, nondistended, normal bowel sounds, no palpable lymphadenopathy. Extremities no edema 2+ distal pulses in bilateral upper and lower extremities, no axillary palpable lymphadenopathy. No inguinal palpable lymphadenopathy. Neuro cranial nerves II through XII intact SKIN SOME JAUNDICE Results - Labs CBC & Chem 7: 06/14/18 06:25 06/15/18 06:36 Laboratory Results - last 24 hr 06/14/18 06/15/18 06/15/18 10:54 06:36 06:36 Sodium 140 Potassium 3.7 Chloride 107 Carbon Dioxide 25.5 Anion Gap 8 BUN 12 Creatinine 0.71 Estimated GFR Greater than 89 Random Glucose 81 Calcium 7.6 L D Magnesium 1.8 Total Bilirubin 14.6 H AST 284 H ALT 109 H Alkaline Phosphatase 461 H Total Protein 5.8 L Albumin 2.1 L Tumor Marker AFP 2.1 Carcinoembryonic Ag 1426.4 H CA 19-9 Antigen 941.2 H 951.9 H Microbiology 06/13/18 17:10 Clean Catch Urine Urine Culture - Preliminary No growth in 24 hours - Imaging Impressions Cholangiopancreatography MRI 06/14/18 00:00 CONCLUSION: 1. Huge mass occupying almost the entire liver measuring 22.3 x 19.9 cm. There is mild intrahepatic biliary ductal dilatation involving the left lobe as well as the right lobe likely secondary to this huge mass which most likely represents hepatocellular carcinoma. There is no significant extrahepatic biliary ductal dilatation. The common bile duct is normal in caliber. 2. Small right adrenal nodule measuring 19 mm is again noted. 3. Innumerable only nodules are noted consistent with metastatic disease to the lungs. 4. T2 signal hyperintensities within the L3, L2 and L1 vertebral bodies which are indeterminate. Metastatic disease is in the differential. Assessment and Plan - Plan This patient is a 67-year-old male with a diagnosis of colon cancer status post proctosigmoidectomy with cholecystectomy by Dr. Puri in July 2013. The patient presented to the emergency department and portal range on 06/13/2018 complaining of jaundice, poor appetite, weight loss of 30 pounds over 3 months, nausea for approximately 3 months. He was found to have a large liver mass and suspected lung metastasis. He was then transferred to the main hospital under our service. 1. Liver mass with obstructive jaundice and bilateral POSSIBLE lung metastatic disease. 2. Pancreatitis Labs show elevated LFTs which are downtrending from yesterday however still elevated. Patient had an elevated lipase of 1200 which is now normalized. Patient's symptoms are not necessarily consistent with pancreatitis. GI consulted MRCP done which showed a huge mass occupying almost the entire liver measuring 22 x 19.9 cm, intrahepatic ductal dilatation likely secondary to the mass. The findings were concerning for hepatocellular carcinoma. There is also concern for metastatic disease to the L-spine. Small right adrenal nodule also noted. Apparently the patient's MRCP was not completed because he began to feel nauseous during the procedure. We will follow-up with GI and will have them evaluate the image to see if a repeat MRCP is necessary. CA 19 9 elevated, CEA elevated, AFP is normal. We will follow-up with your conditions from GI. Oncology is also evaluated the patient, the patient will likely need biopsy of the liver mass. BONE SCAN 3. Urinary tract infection present on admission Patient is afebrile. WBC count within normal limits. Patient's urinalysis is positive. Started on Rocephin. Urine cultures will be followed up. JAUNDICE WITH SUSPECTED LIVER CANCER-METS VS PRIMARY OF COLON CANCER REOCCURRENCE POSSIBLE COLON CANCER WITH LIVER AND LUNG METS SCDs for DVT prophylaxis. Patient may possibly undergo ERCP tomorrow a.m. Code Status: FULL CODE Discussed Condition With: RN AND PT AND CM Discharge Planning: ONCE HAS A TISSUE DIAGNOSIS
--- NOTE | 2018-06-15 12:14 | P.DIET ---
Nutritional Evaluation Type of nutrition evaluation: initial Nutrition screening: Weight Loss > 10 lbs Subjective Oral Diet Tolerance Assessment Indicates: Nausea, Vomiting Subjective Comments: Pt reports fatigue, loss of appetite, nausea, 30 lb wt loss over past 3 months. Objective - Diagnosis Liver Mass, lung metastases, obstructive jaundice - Objective % IBW: 115 (IBW: 178lbs) Body Weight Used for Calculations: Upper end of IBW (89kg) Energy Needs - Lower Range (kCal/kg): 28 Energy Needs - Upper Range (kCal/kg): 32 Lower Limit kCal/kg (kCals): 2,492 Upper Limit kCal/kg (kCals): 2,848 Lower Limit Protein Factor (Grams per Kg): 1.2 Upper Limit Protein Factor (Grams per Kg): 1.5 Lower Protein Needs (Protein): 107 Upper Protein Needs (Protein): 134 Fluid Factor (ml/kg): 30 Estimated Fluid Needs (ml): 2,670 Dietitian Reviewed in Medical Record: Current diet, Curent medications, Intake & Output, Labs, Medical history Diet Order: Cardiac Oral Diet Intake Amount: Poor <50% Objective Comments: PMH: Colon Cancer, Chemotherapy Meds noted: Zofran Labs noted: elevated LFT's, T Bili 114.6 Assessment Assessment: Pt at high nutritional risk r/t significant recent wt loss. Pt has been unable to eat r/t nausea, loss of appetite. Pt admitted with very large liver mass, ERCP completed, per MD, patient needs tissue biopsy for diagnosis of the liver. Pt's nutritional needs as assessed above. Adequate intake has not been established. Recommend changing diet to regular for more food variety. Recommend considering an appetite stimulant. 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 Will provide patient with Enlive TID, each bottle contains 350kcals and 20 gms protein. Will monitor po intake, clinical course. Recommendations: Recommend: -change diet to regular -appetite stimulant -Theragran M daily Will provide Enlive TID Dietitian to Monitor: Lab values, Liver enzymes, Supplement acceptance, Intake & Output, Diet tolerance, Weight change, PO Intake, Medical course
--- NOTE | 2018-06-15 19:41 | P.PNGI ---
Subjective Interval history: Same overall general condition. Physical Exam Vital signs: Vital Signs 06/14/18 20:00 06/15/18 00:00 06/15/18 08:00 Temperature 98.2 F 98.5 F 98.0 F Pulse Rate 86 76 94 H Respiratory Rate 18 18 18 Blood Pressure 131/76 124/73 109/71 Pulse Oximetry 97 94 L 96 06/15/18 12:00 06/15/18 16:00 Temperature 98.2 F 99.4 F Pulse Rate 68 75 Respiratory Rate 18 16 Blood Pressure 113/63 113/55 L Pulse Oximetry 92 L 96 Intake & Output 06/15/18 06/15/18 06/16/18 06:59 18:59 06:59 Intake Total 1920 / 1920 3100 / 3100 Balance 1920 / 1920 3100 / 3100 Weight 93.6 kg Intake: IV 1800 / 1800 1300 / 1300 D5W/Normal Saline Inj 1,000 ML 1000 / 1000 @ 125 mls/hr IV.CONT .Q8H ES Rx#:[id number] NS Inj 1,000 ML @ 100 mls/hr IV 700 / 700 1300 / 1300 .CONT .Q10H ES Rx#:[id number] Rocephin Inj 1,000 MG In NS Inj 100 / 100 100 ML @ 200 mls/hr IV.SIG Q24H ES Rx#:[id number] Oral 120 / 120 1800 / 1800 Other: # Voids 2 4 Date of Last Bowel Movement 06/14/18 # Bowel Movements 1 Narrative: General patient in no acute distress, he has on and off nausea and poor appetite otherwise no complaints. HEENT extraocular movements are intact, clear oropharyngeal mucosa, no JVD EOMI , PERRLA SOME SCLERAL ICTERUS Cardiovascular S1-S2 audible, RRR, no murmurs rubs or gallops Respiratory clear to auscultation bilaterally Abdomen soft, nontender, nondistended, normal bowel sounds, no palpable lymphadenopathy. Extremities no edema 2+ distal pulses in bilateral upper and lower extremities, no axillary palpable lymphadenopathy. No inguinal palpable lymphadenopathy. Neuro cranial nerves II through XII intact SKIN SOME JAUNDICE Results - Labs CBC & Chem 7: 06/14/18 06:25 06/15/18 06:36 Laboratory Results - last 24 hr 06/15/18 06/15/18 06:36 06:36 Sodium 140 Potassium 3.7 Chloride 107 Carbon Dioxide 25.5 Anion Gap 8 BUN 12 Creatinine 0.71 Estimated GFR Greater than 89 Random Glucose 81 Calcium 7.6 L D Magnesium 1.8 Total Bilirubin 14.6 H AST 284 H ALT 109 H Alkaline Phosphatase 461 H Total Protein 5.8 L Albumin 2.1 L Tumor Marker AFP 2.1 Carcinoembryonic Ag 1426.4 H CA 19-9 Antigen 951.9 H Microbiology 06/13/18 17:10 Clean Catch Urine Urine Culture - Final No growth in 48 hours Assessment and Plan - Plan A 67-year-old male patient with past medical history of colorectal cancer, status post resection in 2013, who presented with fatigue, loss of energy and a significant unintentional weight loss of 30 pounds over 3 months and deep jaundice, found to have a with the following problems: 1. Increase in liver enzymes with a bilirubin of 17.5 and increase in transaminitis. 2. Increase in lipase level, although the patient is not having any symptoms compatible with pancreatitis. 3. CT scan showing a lesion in the liver that is a large invasive mass involving the right and left lobe of the liver, measured around 20 cm with characteristic features of neoplasm. Primary lesion like hepatocellular carcinoma is a possibility, but no comment on the biliary tree. 4. MRCP showing minimal dilation of intrahepatic ducts and normal CBD 5. Elevated tumor markers. RECOMMENDATIONS: Limited value for stenting with normal nearly biliary tree, will need follow up with oncology service for possible referral to [facility] or [facility]. Continue supportive care.
[2018-06-16] MEDS: Sod Chloride 0.9% Inj 1,000 ML IV.CONT SCH ×4 (04:15→22:14)
[2018-06-16 05:13] LABS: Hematocrit 38.3 % (39.0-51.0); Hemoglobin 13.4 gm/dL (13.0-17.0); Mean Corpuscular HGB Conc 34.9 % (32.0-36.0); Mean Corpuscular Hemoglobin 30.6 pg (27.0-34.0); Mean Corpuscular Volume 87.8 fL (80.0-100.0); Mean Platelet Volume 8.7 fL (7.0-11.0); Platelet Count 252 th/mm3 (150-450); Red Blood Count 4.37 mil/mm3 (4.50-5.90); Red Cell Distribution Width 17.4 % (11.6-17.2); White Blood Count 10.1 th/mm3 (4.0-11.0)
[2018-06-16 05:24] LABS: INR 1.2 Ratio; Prothrombin Time 12.5 sec (9.8-11.6)
[2018-06-16 05:37] LABS: Alanine Aminotransferase 125 U/L (12-78); Albumin 2.3 g/dL (3.4-5.0); Amylase 32 U/L (25-115); Anion Gap 10 meq/L (5-15); Aspartate Aminotransferase 311 U/L (15-37); Blood Urea Nitrogen 12 mg/dL (7-18); Carbon Dioxide 24.4 meq/L (21.0-32.0); Chloride 104 meq/L (98-107); Glomerular Filtration Rate Greater Than 89 mL/min (>89); Glucose,Random 84 mg/dL (74-106); Lipase 147 U/L (73-393); Magnesium 1.8 mg/dL (1.5-2.5); Phosphorus 2.3 mg/dL (2.5-4.9); Potassium 3.7 meq/L (3.5-5.1); Sodium 138 meq/L (136-145)
[2018-06-16 05:49] LABS: Alkaline Phosphatase 525 U/L (45-117); Total Protein 6.5 g/dL (6.4-8.2)
[2018-06-16 07:32] LABS: Eosinophils 4 % (0-4); Lymphocytes 17 % (9-44); Monocytes 6 % (0-8)
[2018-06-16 07:33] LABS: Platelet Estimate Normal (Normal); Platelet Morphology Normal (Normal); Target Cells 1+
[2018-06-16] MEDS: Senna/Docusate Sodium 8.6/50 MG Tablet PO SCH ×2 (08:08→22:12)
[2018-06-16] MEDS ORDERED: fentaNYL Citrate Inj 250 MCG/5 ML Ampul ONE (08:42)
--- NOTE | 2018-06-16 10:11 | P.RAD ---
Post Procedure Progress Note - Procedure Information Procedure Date: 06/16/18 Supervising Radiologist: Emmett Laureano MD Estimated blood loss (mL): 0 Anesthesia: Conscious Sedation - Plan of Activity Patient to Unit: [facility] Patient Condition: Good See PACS Report for procedural detail/treatment.
--- NOTE | 2018-06-16 11:34 | P.PNIM ---
Subjective Interval history: Chief Complaint: Jaundice History of Present Illness: Mr. Fish is a very pleasant 67 year old male patient with a history of colon cancer s/p proctosigmoidectomy with cholecystectomy by Dr. Tariq on 07/20/2013 who presented to the ER on 06/13/18 in [place] complaining of jaundice, poor appetite, and nausea x 3 months. He was found to have a large liver mass and the appearance of diffuse bilateral lung metastasis on imaging and was transferred the main hospital under the hospitalist service for ERCP by Dr. Vieira. The patient is seen in his hospital room shortly after arrival from [place]. He reports excessive fatigue, loss of appetite, nausea, and unintentional 30 lb weight loss over the past 3 months. He is supposed to establish with PCP Dr. Beach next week but when he and his noted jaundice yesterday and scleral icterus, they decided he could not weight to be seen. He denies shortness of breath, cough, fever, chills, vomiting, or diarrhea. He reports pasty white stools over the past few days. He also reports left flank pain. UA suggestive of UTI. The patient is adopted, family history for family of origin is unknown. He has one daughter who is alive, well, and healthy. Smoked 2 PPD x 27 years, quit 1995 and no ETOH since 1995. 12-1 Patient complaint of poor appetite, on and off nausea. No other complaints. 12-2 SEEN BY GI AND ONCOLOGY DR CUNNINGHAM NEED A TISSUE BIOPSY TO HELP MAKE DIAGNOSIS STILL HAS SOME ABDOMINAL PAIN HAD MRCP YESTERDAY NEEDS IR FOR TISSUE DIAGNOSIS OF LIVER HAS HX OF COLON CANCER- POSSIBLE REOCCURRENCE VS NEW PRIMARY 12-3 HAD LIVER BIOPSY WITH IR TODAY FOR BONE SCAN TOMORROW DW RN AND PT AND FAMILY AM LABS Physical Exam Vital signs: Vital Signs 06/15/18 12:00 06/15/18 16:00 06/15/18 20:00 Temperature 98.2 F 99.4 F 99.0 F Pulse Rate 68 75 79 Respiratory Rate 18 16 18 Blood Pressure 113/63 113/55 L 128/73 Pulse Oximetry 92 L 96 96 06/16/18 00:00 06/16/18 08:00 06/16/18 10:00 Temperature 98.0 F 98.0 F 98.3 F Pulse Rate 80 94 H 83 Respiratory Rate 18 18 18 Blood Pressure 115/70 117/74 126/75 Pulse Oximetry 96 97 95 06/16/18 10:15 06/16/18 10:30 06/16/18 11:00 Temperature Pulse Rate 76 85 80 Respiratory Rate 18 Blood Pressure 129/74 135/80 125/80 Pulse Oximetry 95 96 97 Intake & Output 06/15/18 06/16/18 06/16/18 18:59 06:59 18:59 Intake Total 3100 / 3100 1100 / 1100 1120 / 1120 Balance 3100 / 3100 1100 / 1100 1120 / 1120 Weight 96.1 kg Intake: IV 1300 / 1300 1100 / 1100 1000 / 1000 NS Inj 1,000 ML @ 100 mls/hr IV 1300 / 1300 1000 / 1000 1000 / 1000 .CONT .Q10H ES Rx#:[id number] Rocephin Inj 1,000 MG In NS Inj 100 / 100 100 ML @ 200 mls/hr IV.SIG Q24H ES Rx#:[id number] Oral 1800 / 1800 120 / 120 Other: # Voids 4 1 1 Date of Last Bowel Movement 06/15/18 06/15/18 Narrative: General patient in no acute distress, he has on and off nausea and poor appetite otherwise no complaints. HEENT extraocular movements are intact, clear oropharyngeal mucosa, no JVD EOMI , PERRLA SOME SCLERAL ICTERUS Cardiovascular S1-S2 audible, RRR, no murmurs rubs or gallops Respiratory clear to auscultation bilaterally Abdomen soft, nontender, nondistended, normal bowel sounds, no palpable lymphadenopathy. Extremities no edema 2+ distal pulses in bilateral upper and lower extremities, no axillary palpable lymphadenopathy. No inguinal palpable lymphadenopathy. Neuro cranial nerves II through XII intact SKIN SOME JAUNDICE Results - Labs CBC & Chem 7: 06/16/18 04:56 06/16/18 04:56 Laboratory Results - last 24 hr 06/16/18 06/16/18 06/16/18 04:56 04:56 04:56 WBC 10.1 RBC 4.37 L Hgb 13.4 Hct 38.3 L MCV 87.8 MCH 30.6 MCHC 34.9 RDW 17.4 H Plt Count 252 MPV 8.7 Prelim Diff (Auto) Manual diff required WBC Differential Manual diff final Seg Neuts % (Manual) 69 Band Neuts % (Manual) 2 Lymphocytes % (Manual) 17 Monocytes % (Manual) 6 Eosinophils % (Manual) 4 Basophils % (Manual) 2 Abs Neuts (Manual) 7.2 Differential Comment . Platelet Estimate Normal Platelet Morphology Normal Target Cells 1+ H PT 12.5 H INR 1.2 Sodium 138 Potassium 3.7 Chloride 104 Carbon Dioxide 24.4 Anion Gap 10 BUN 12 Creatinine 0.75 Estimated GFR Greater than 89 Random Glucose 84 Calcium 8.0 L Phosphorus 2.3 L Magnesium 1.8 Total Bilirubin 16.9 H AST 311 H ALT 125 H Alkaline Phosphatase 525 H Ammonia Total Protein 6.5 D Albumin 2.3 L Amylase 32 Lipase 147 TSH 2.690 Free T4 1.40 06/16/18 04:56 WBC RBC Hgb Hct MCV MCH MCHC RDW Plt Count MPV Prelim Diff (Auto) WBC Differential Seg Neuts % (Manual) Band Neuts % (Manual) Lymphocytes % (Manual) Monocytes % (Manual) Eosinophils % (Manual) Basophils % (Manual) Abs Neuts (Manual) Differential Comment Platelet Estimate Platelet Morphology Target Cells PT INR Sodium Potassium Chloride Carbon Dioxide Anion Gap BUN Creatinine Estimated GFR Random Glucose Calcium Phosphorus Magnesium Total Bilirubin AST ALT Alkaline Phosphatase Ammonia 31 Total Protein Albumin Amylase Lipase TSH Free T4 Microbiology 06/13/18 17:10 Clean Catch Urine Urine Culture - Final No growth in 48 hours - Procedures LIVER BIOPSY ON 06-16 Assessment and Plan - Plan This patient is a 67-year-old male with a diagnosis of colon cancer status post proctosigmoidectomy with cholecystectomy by Dr. Puri in July 2013. The patient presented to the emergency department and portal range on 06/13/2018 complaining of jaundice, poor appetite, weight loss of 30 pounds over 3 months, nausea for approximately 3 months. He was found to have a large liver mass and suspected lung metastasis. He was then transferred to the [facility] hospital under our service. 1. Liver mass with obstructive jaundice and bilateral POSSIBLE lung metastatic disease. SP LIVER BIOPSY 06-16 2. Pancreatitis Labs show elevated LFTs which are downtrending from yesterday however still elevated. Patient had an elevated lipase of 1200 which is now normalized. Patient's symptoms are not necessarily consistent with pancreatitis. GI consulted MRCP done which showed a huge mass occupying almost the entire liver measuring 22 x 19.9 cm, intrahepatic ductal dilatation likely secondary to the mass. The findings were concerning for hepatocellular carcinoma. There is also concern for metastatic disease to the L-spine. Small right adrenal nodule also noted. Apparently the patient's MRCP was not completed because he began to feel nauseous during the procedure. We will follow-up with GI and will have them evaluate the image to see if a repeat MRCP is necessary. CA 19 9 elevated, CEA elevated, AFP is normal. We will follow-up with your conditions from GI. Oncology is also evaluated the patient, the patient will likely need biopsy of the liver mass. BONE SCAN HAD BIOPSY OF LIVER MASS ON 06-16. Urinary tract infection present on admission Patient is afebrile. WBC count within normal limits. Patient's urinalysis is positive. Started on Rocephin. Urine cultures will be followed up. JAUNDICE WITH SUSPECTED LIVER CANCER-METS VS PRIMARY OF COLON CANCER REOCCURRENCE POSSIBLE COLON CANCER WITH LIVER AND LUNG METS SCDs for DVT prophylaxis. Patient may possibly undergo ERCP tomorrow a.m. Code Status: FULL CODE Discussed Condition With: RN AND PT AND CM Discharge Planning: ONCE HAS A TISSUE DIAGNOSIS AND ONCOLOGY CLEARS FOR DISCHARGE
--- NOTE | 2018-06-16 11:37 | US ---
EXAM DATE: 06/16/2018 10:11 AM EST AGE/SEX: 67 years / Male INDICATIONS: Liver mass. CLINICAL DATA: This is the patient's initial encounter. Patient reports that signs and symptoms have been present for 1 day and indicates a pain score of 0/10. MEDICAL/SURGICAL HISTORY: . Colon cancer. Chemotherapy. Cholecystectomy. Colon resection. COMPARISON: [facility], MRCP W/O CONTRAST, 06/14/2018. . MEDICATION(S): 2.5 mg midazolam (Versed) IV 100 mg fentanyl (Sublimaze) IV ORGAN: Right upper quadrant. SPECIMEN(S): Four core specimen(s) submitted for pathologic evaluation. DEVICE(S): 18 gauge Bard needle SEDATION TIME (min): 30 mins Post procedure scanning reveals no hematoma or other complication. The possibility does exist that the tissue obtained will be non-diagnostic. If the sample is non-diag nostic, a repeat biopsy or surgical biopsy may need to be performed. TECHNIQUE: 1. Ultrasound guidance for needle biopsy. 2. Needle biopsy. 3. Conscious sedation with continuous EKG and oximetry monitoring. 4. EKG and oximetry remained stable throughout the procedure. . . The risks, benefits and alternatives to the procedure were explained and verbal and written consent w as obtained. The site was prepped in sterile fashion. Full sterile technique was used, including ca p, mask, sterile gloves and gown and a large sterile sheet. Hand hygiene and 2% chlorhexidine and/or betadine/alcohol prep was utilized per protocol for cutaneous antisepsis. The skin and subcutaneous tissues were infiltrated with local anesthetic solution. Sterile gel and sterile probe cover were u tilized for ultrasound guidance. With the patient on the ultrasound table, images were obtained. A needle was advanced into the identified target and the number of specimens as above obtained and toussaint bmitted for pathologic evaluation. The patient tolerated the procedure well and left the ultrasound suite in stable condition. FINDINGS: Large infiltrative mass occupying a large portion of the liver. CONCLUSION: 1. Uncomplicated ultrasound guided liver mass biopsy. Electronically signed by: Emmett Laureano MD 06/16/2018 11:36 AM EST
[2018-06-16] MEDS ORDERED: Lidocaine PF 1% Inj 5 ML Vial ONE (13:20)
--- NOTE | 2018-06-16 13:31 | P.PNONC ---
Subjective Interval history: Afebrile. Patient sitting at bedside, he is just finished eating lunch. He is status post liver biopsy earlier today. He reports tenderness to the area. All questions answered to patient's satisfaction. Objective Vital Signs/Intake & Output: Vital Signs 06/15/18 16:00 06/15/18 20:00 06/16/18 00:00 Temperature 99.4 F 99.0 F 98.0 F Pulse Rate 75 79 80 Respiratory Rate 16 18 18 Blood Pressure 113/55 L 128/73 115/70 Pulse Oximetry 96 96 96 06/16/18 08:00 06/16/18 10:00 06/16/18 10:15 Temperature 98.0 F 98.3 F Pulse Rate 94 H 83 76 Respiratory Rate 18 18 18 Blood Pressure 117/74 126/75 129/74 Pulse Oximetry 97 95 95 06/16/18 10:30 06/16/18 11:00 Temperature Pulse Rate 85 80 Respiratory Rate 18 18 Blood Pressure 135/80 125/80 Pulse Oximetry 96 97 Intake & Output 06/15/18 06/16/18 06/16/18 18:59 06:59 18:59 Intake Total 3100 / 3100 1100 / 1100 1120 / 1120 Balance 3100 / 3100 1100 / 1100 1120 / 1120 Weight 96.1 kg Intake: IV 1300 / 1300 1100 / 1100 1000 / 1000 NS Inj 1,000 ML @ 100 mls/hr IV 1300 / 1300 1000 / 1000 1000 / 1000 .CONT .Q10H ES Rx#:[id number] Rocephin Inj 1,000 MG In NS Inj 100 / 100 100 ML @ 200 mls/hr IV.SIG Q24H ES Rx#:[id number] Oral 1800 / 1800 120 / 120 Other: # Voids 4 1 1 Date of Last Bowel Movement 06/15/18 06/15/18 Result Diagrams: 06/16/18 04:56 06/16/18 04:56 Laboratory Results: Laboratory Results - last 24 hr 06/16/18 06/16/18 06/16/18 04:56 04:56 04:56 WBC 10.1 RBC 4.37 L Hgb 13.4 Hct 38.3 L MCV 87.8 MCH 30.6 MCHC 34.9 RDW 17.4 H Plt Count 252 MPV 8.7 Prelim Diff (Auto) Manual diff required WBC Differential Manual diff final Seg Neuts % (Manual) 69 Band Neuts % (Manual) 2 Lymphocytes % (Manual) 17 Monocytes % (Manual) 6 Eosinophils % (Manual) 4 Basophils % (Manual) 2 Abs Neuts (Manual) 7.2 Differential Comment . Platelet Estimate Normal Platelet Morphology Normal Target Cells 1+ H PT 12.5 H INR 1.2 Sodium 138 Potassium 3.7 Chloride 104 Carbon Dioxide 24.4 Anion Gap 10 BUN 12 Creatinine 0.75 Estimated GFR Greater than 89 Random Glucose 84 Calcium 8.0 L Phosphorus 2.3 L Magnesium 1.8 Total Bilirubin 16.9 H AST 311 H ALT 125 H Alkaline Phosphatase 525 H Ammonia Total Protein 6.5 D Albumin 2.3 L Amylase 32 Lipase 147 TSH 2.690 Free T4 1.40 06/16/18 04:56 WBC RBC Hgb Hct MCV MCH MCHC RDW Plt Count MPV Prelim Diff (Auto) WBC Differential Seg Neuts % (Manual) Band Neuts % (Manual) Lymphocytes % (Manual) Monocytes % (Manual) Eosinophils % (Manual) Basophils % (Manual) Abs Neuts (Manual) Differential Comment Platelet Estimate Platelet Morphology Target Cells PT INR Sodium Potassium Chloride Carbon Dioxide Anion Gap BUN Creatinine Estimated GFR Random Glucose Calcium Phosphorus Magnesium Total Bilirubin AST ALT Alkaline Phosphatase Ammonia 31 Total Protein Albumin Amylase Lipase TSH Free T4 Culture Results: Microbiology 06/13/18 17:10 Urine Culture - Final Clean Catch Urine No growth in 48 hours Imaging Studies: Impressions Liver Biopsy Ultrasound 06/16/18 00:00 CONCLUSION: 1. Uncomplicated ultrasound guided liver mass biopsy. Medications: Active Medications Generic Name Dose Route Start Last Admin Trade Name Freq PRN Reason Stop Dose Admin Ceftriaxone Sodium 1,000 mg/ 100 mls @ 200 mls/hr 06/14/18 21:00 06/15/18 20: 35 Sodium Chloride IV.SIG Infused Q24H ES Infusion Sodium Chloride 1,000 mls @ 100 mls/hr 06/14/18 18:00 06/16/18 10:45 Ns Inj IV.CONT 100 mls/hr .Q10H ES Administration Ondansetron HCl 4 mg 06/13/18 22:12 06/14/18 14:09 Zofran Inj IV.PUSH 4 mg Q6H PRN Administration NAUSEA OR VOMITING Senna/Docusate Sodium 1 tab 06/14/18 09:00 06/16/18 08:08 Daniella-Colace PO Not Given BID ES Sodium Chloride 2 ml 06/14/18 09:00 06/16/18 08:07 Ns Flush IV.FLUSH Not Given BID ES Objective Remarks: GENERAL: Acutely ill appearing jaundiced male patient, in no acute distress. SKIN: + Jaundice. Warm and dry. HEAD: Normocephalic. EYES: + scleral icterus. No injection or drainage. NECK: Supple, trachea midline. CARDIOVASCULAR: Regular rate and rhythm without murmurs. RESPIRATORY: Breath sounds equal bilaterally. No accessory muscle use. GASTROINTESTINAL: Abdomen soft, non-tender, nondistended. 2 x 2 gauze right lateral side. EXTREMITIES: No cyanosis, or edema. MUSCULOSKELETAL: Adequate muscle tone. NEUROLOGICAL: No obvious focal deficit. Awake, alert, and oriented x3. PSYCHIATRIC: Appropriate mood and affect; insight and judgment normal. Assessment/Plan - Plan 1. Obstructive jaundice and constitutional symptoms. The patient has not been feeling well for the last 3 months. He has nausea without vomiting. He has lost 30 pounds. He has increased jaundice. On presentation, a CT of the abdomen and pelvis showed a large mass involving bilateral hepatic lobe measured up to 20.2 cm. There was also a 1.8 cm right adrenal mass noted. CT of the chest showed more than 100 lesions in the lung, 2 largest are in the right lung and measured up to 6.6 cm. He had history of colon cancer, stage III, treated in 2013. However, he did not follow up. This is suspicious for metastatic colon cancer, although the large liver metastasis are rather unusual. Cannot totally rule out hepatocellular carcinoma. The patient, however, has no history of cirrhosis or hepatitis, which makes it less likely. June 15: CEA elevated around 1500 and CA 199 around 900. MRCP showed large hepatic mass with mild intrahepatic biliary dilatation but no obvious extrahepatic biliary dilatation. Gastroenterology is postponing ERCP. It appears that patient has metastatic colon cancer rather than Hepatocellular carcinoma. We will consult radiology for biopsy of the liver mass. 2. History of colon cancer, pathologic stage III. He presented with bowel habit changes and found to have a large mass in the rectosigmoid colon. He underwent resection and pathology showed moderately differentiated adenocarcinoma measuring 5.5 cm, and 2/14 lymph nodes were positive. Preop CT showed a nonspecific liver lesion, but PET scan did not show any uptake in the liver. During surgery, the liver was explored and no palpable liver metastasis. It was a pathologic stage T4 N1, or stage III. His CEA was 14.5 before treatment and trended down to 2 with treatment. He received adjuvant Xeloda, but I think he only received 5 cycles and did not show up for followup since 11/2013. 3. Hypertension. He is not on any medication. 4. Nonspecific bone lesion noted on lumbar spine on MRI. He has no bone pain. RECOMMENDATIONS: 1. Large mass involving bilateral hepatic lobes, status post liver biopsy today. Path pending. 2. Obtain bone scan tomorrow. 3. Continue supportive care. - Attending Statement The exam, history, and the medical decision-making described in the above note were completed with the assistance of the mid-level provider. I reviewed and agree with the findings presented. I attest that I had a [id number] encounter with the patient on the same day, and personally performed and documented my assessment and findings in the medical record.Mild abdominal discomfort. Reviewed MRCp with pt and his partner. No significant extrahepatic biliary dilatation and GI does not recommend ERCP. IR was consulted for biopsy of liver mass.
[2018-06-16 16:22] LABS: Hemoglobin A1c 4.9 % (4.3-6.0)
[2018-06-17] MEDS: Sod Chloride 0.9% Inj 1,000 ML IV.CONT SCH (06:25)
[2018-06-17 07:22] LABS: Hematocrit 35.2 % (39.0-51.0); Hemoglobin 12.3 gm/dL (13.0-17.0); Mean Corpuscular HGB Conc 34.8 % (32.0-36.0); Mean Corpuscular Hemoglobin 30.7 pg (27.0-34.0); Mean Corpuscular Volume 88.2 fL (80.0-100.0); Mean Platelet Volume 9.2 fL (7.0-11.0); Platelet Count 242 th/mm3 (150-450); Red Blood Count 3.99 mil/mm3 (4.50-5.90); Red Cell Distribution Width 17.3 % (11.6-17.2); White Blood Count 8.2 th/mm3 (4.0-11.0)
[2018-06-17] MEDS: Senna/Docusate Sodium 8.6/50 MG Tablet PO SCH (08:09)
[2018-06-17 08:15] LABS: Alkaline Phosphatase 531 U/L (45-117); Total Protein 5.9 g/dL (6.4-8.2)
[2018-06-17 08:26] LABS: Albumin 2.1 g/dL (3.4-5.0); Anion Gap 8 meq/L (5-15); Aspartate Aminotransferase 301 U/L (15-37); Blood Urea Nitrogen 12 mg/dL (7-18); Calcium 7.8 mg/dL (8.5-10.1); Carbon Dioxide 24.9 meq/L (21.0-32.0); Chloride 105 meq/L (98-107); Glomerular Filtration Rate Greater Than 89 mL/min (>89); Glucose,Random 87 mg/dL (74-106); Magnesium 1.8 mg/dL (1.5-2.5); Phosphorus 2.4 mg/dL (2.5-4.9); Potassium 3.8 meq/L (3.5-5.1); Sodium 138 meq/L (136-145)
[2018-06-17 08:27] LABS: Alanine Aminotransferase 124 U/L (12-78)
[2018-06-17 08:28] LABS: Eosinophils 1 % (0-4); Lymphocytes 9 % (9-44); Monocytes 8 % (0-8); Platelet Estimate Normal (Normal); Platelet Morphology Normal (Normal)
[2018-06-17 08:29] LABS: Target Cells 1+
--- NOTE | 2018-06-17 08:46 | P.PNONC ---
Subjective Interval history: Pt sitting at bedside eating breakfast. Pt requests to not have bone scan done. He would like to be discharged home and f/u as outpt. This was discussed with his oncologist Dr Lopez, who is agreeable. Pt with no complaints at this time. Objective Vital Signs/Intake & Output: Vital Signs 06/16/18 10:00 06/16/18 10:15 06/16/18 10:30 Temperature 98.3 F Pulse Rate 83 76 85 Respiratory Rate 18 18 18 Blood Pressure 126/75 129/74 135/80 Pulse Oximetry 95 95 96 06/16/18 11:00 06/16/18 12:00 06/16/18 16:00 Temperature 97.7 F 99.0 F Pulse Rate 80 79 80 Respiratory Rate 18 18 16 Blood Pressure 125/80 120/76 127/76 Pulse Oximetry 97 96 97 06/16/18 20:00 06/16/18 23:44 Temperature 98.5 F 98.6 F Pulse Rate 80 73 Respiratory Rate 18 19 Blood Pressure 118/65 119/59 L Pulse Oximetry 96 96 Intake & Output 06/16/18 06/17/18 06/17/18 18:59 06:59 18:59 Intake Total 1120 / 1120 1600 / 1600 Balance 1120 / 1120 1600 / 1600 Weight 95.9 kg Intake: IV 1000 / 1000 1100 / 1100 NS Inj 1,000 ML @ 100 mls/hr IV 1000 / 1000 1000 / 1000 .CONT .Q10H ES Rx#:[id number] Rocephin Inj 1,000 MG In NS Inj 100 / 100 100 ML @ 200 mls/hr IV.SIG Q24H ES Rx#:[id number] Oral 120 / 120 500 / 500 Other: # Voids 1 2 Date of Last Bowel Movement 06/15/18 06/15/18 Result Diagrams: 06/17/18 06:31 06/17/18 06:31 Laboratory Results: Laboratory Results - last 24 hr 06/16/18 06/17/18 06/17/18 04:56 06:31 06:31 WBC 8.2 RBC 3.99 L Hgb 12.3 L Hct 35.2 L MCV 88.2 MCH 30.7 MCHC 34.8 RDW 17.3 H Plt Count 242 MPV 9.2 Prelim Diff (Auto) Manual diff required WBC Differential Manual diff final Seg Neuts % (Manual) 77 H Band Neuts % (Manual) 5 Lymphocytes % (Manual) 9 Monocytes % (Manual) 8 Eosinophils % (Manual) 1 Abs Neuts (Manual) 6.7 Differential Comment . Platelet Estimate Normal Platelet Morphology Normal Target Cells 1+ H Sodium 138 Potassium 3.8 Chloride 105 Carbon Dioxide 24.9 Anion Gap 8 BUN 12 Creatinine 0.79 Estimated GFR Greater than 89 Random Glucose 87 Hemoglobin A1c 4.9 Calcium 7.8 L Phosphorus 2.4 L Magnesium 1.8 Total Bilirubin 17.0 H AST 301 H ALT 124 H Alkaline Phosphatase 531 H Total Protein 5.9 L D Albumin 2.1 L Culture Results: Microbiology 06/13/18 17:10 Urine Culture - Final Clean Catch Urine No growth in 48 hours Imaging Studies: Impressions Liver Biopsy Ultrasound 06/16/18 00:00 CONCLUSION: 1. Uncomplicated ultrasound guided liver mass biopsy. Medications: Active Medications Generic Name Dose Route Start Last Admin Trade Name Freq PRN Reason Stop Dose Admin Ceftriaxone Sodium 1,000 mg/ 100 mls @ 200 mls/hr 06/14/18 21:00 06/16/18 23: 48 Sodium Chloride IV.SIG Infused Q24H ES Infusion Sodium Chloride 1,000 mls @ 100 mls/hr 06/14/18 18:00 06/17/18 06:25 Ns Inj IV.CONT Not Given .Q10H ES Ondansetron HCl 4 mg 06/13/18 22:12 06/14/18 14:09 Zofran Inj IV.PUSH 4 mg Q6H PRN Administration NAUSEA OR VOMITING Senna/Docusate Sodium 1 tab 06/14/18 09:00 06/17/18 08:09 Daniella-Colace PO Not Given BID ES Sodium Chloride 2 ml 06/14/18 09:00 06/17/18 08:08 Ns Flush IV.FLUSH Not Given BID ES Objective Remarks: GENERAL: Acutely ill appearing jaundiced male patient, in no acute distress. SKIN: + Jaundice. Warm and dry. HEAD: Normocephalic. EYES: + scleral icterus. No injection or drainage. NECK: Supple, trachea midline. CARDIOVASCULAR: Regular rate and rhythm without murmurs. RESPIRATORY: Breath sounds equal bilaterally. Non-labored. GASTROINTESTINAL: Abdomen soft, non-tender, nondistended. 2 x 2 gauze right lateral side. EXTREMITIES: No cyanosis, or edema. MUSCULOSKELETAL: Adequate muscle tone. NEUROLOGICAL: No obvious focal deficit. Awake, alert, and oriented x3. PSYCHIATRIC: Appropriate mood and affect; insight and judgment normal. Assessment/Plan - Plan 1. Obstructive jaundice and constitutional symptoms. The patient has not been feeling well for the last 3 months. He has nausea without vomiting. He has lost 30 pounds. He has increased jaundice. On presentation, a CT of the abdomen and pelvis showed a large mass involving bilateral hepatic lobe measured up to 20.2 cm. There was also a 1.8 cm right adrenal mass noted. CT of the chest showed more than 100 lesions in the lung, 2 largest are in the right lung and measured up to 6.6 cm. He had history of colon cancer, stage III, treated in 2013. However, he did not follow up. This is suspicious for metastatic colon cancer, although the large liver metastasis are rather unusual. Cannot totally rule out hepatocellular carcinoma. The patient, however, has no history of cirrhosis or hepatitis, which makes it less likely. June 15: CEA elevated around 1500 and CA 199 around 900. MRCP showed large hepatic mass with mild intrahepatic biliary dilatation but no obvious extrahepatic biliary dilatation. Gastroenterology is postponing ERCP. It appears that patient has metastatic colon cancer rather than Hepatocellular carcinoma. We will consult radiology for biopsy of the liver mass. 2. History of colon cancer, pathologic stage III. He presented with bowel habit changes and found to have a large mass in the rectosigmoid colon. He underwent resection and pathology showed moderately differentiated adenocarcinoma measuring 5.5 cm, and 2/14 lymph nodes were positive. Preop CT showed a nonspecific liver lesion, but PET scan did not show any uptake in the liver. During surgery, the liver was explored and no palpable liver metastasis. It was a pathologic stage T4 N1, or stage III. His CEA was 14.5 before treatment and trended down to 2 with treatment. He received adjuvant Xeloda, but I think he only received 5 cycles and did not show up for followup since 11/2013. 3. Hypertension. He is not on any medication. 4. Nonspecific bone lesion noted on lumbar spine on MRI. He has no bone pain. RECOMMENDATIONS: 1. Large mass involving bilateral hepatic lobes, status post liver biopsy yesterday. Path pending. 2. Patient declines bone scan, would like to be discharged home and f/u as outpatient. 3. Pt cleared from oncology for discharge home. Pt will f/u outpt next week. Information sent to new pt referrals. - Attending Statement The exam, history, and the medical decision-making described in the above note were completed with the assistance of the mid-level provider. I reviewed and agree with the findings presented. I attest that I had a [id number] encounter with the patient on the same day, and personally performed and documented my assessment and findings in the medical record. Patient is feeling better. His abdominal pain is controlled. He wants to go home. He does not want to have bone scan bone scan. Pathology still pending. I have extensive discussion with his partner and his daughter. They have multiple questions which were answered. Patient can be discharged from oncology standpoint. He can follow-up at outpatient clinic. We will have pathology do mutation study if he confirms to have colon cancer. He will need port placement outpatient. We will have him follow oncology clinic.
--- NOTE | 2018-06-17 11:54 | P.PNIM ---
Subjective Interval history: Chief Complaint: Jaundice History of Present Illness: Mr. Fish is a very pleasant 67 year old male patient with a history of colon cancer s/p proctosigmoidectomy with cholecystectomy by Dr. Tariq on 07/20/2013 who presented to the ER on 06/13/18 in [place] complaining of jaundice, poor appetite, and nausea x 3 months. He was found to have a large liver mass and the appearance of diffuse bilateral lung metastasis on imaging and was transferred the main hospital under the hospitalist service for ERCP by Dr. Vieira. The patient is seen in his hospital room shortly after arrival from [place]. He reports excessive fatigue, loss of appetite, nausea, and unintentional 30 lb weight loss over the past 3 months. He is supposed to establish with PCP Dr. Beach next week but when he and his noted jaundice yesterday and scleral icterus, they decided he could not weight to be seen. He denies shortness of breath, cough, fever, chills, vomiting, or diarrhea. He reports pasty white stools over the past few days. He also reports left flank pain. UA suggestive of UTI. The patient is adopted, family history for family of origin is unknown. He has one daughter who is alive, well, and healthy. Smoked 2 PPD x 27 years, quit 1995 and no ETOH since 1995. 12-1 Patient complaint of poor appetite, on and off nausea. No other complaints. 12-2 SEEN BY GI AND ONCOLOGY DR CUNNINGHAM NEED A TISSUE BIOPSY TO HELP MAKE DIAGNOSIS STILL HAS SOME ABDOMINAL PAIN HAD MRCP YESTERDAY NEEDS IR FOR TISSUE DIAGNOSIS OF LIVER HAS HX OF COLON CANCER- POSSIBLE REOCCURRENCE VS NEW PRIMARY 12-3 HAD LIVER BIOPSY WITH IR TODAY FOR BONE SCAN TOMORROW [facility] RN AND PT AND FAMILY AM LABS 12-4 DOES NOT WANT BONE SCAN WANTS TO GO HOME TODAY [facility] RN AND PT AND DC TO HOME TODAY FOLLOW UP WITH DR CUNNINGHAM CAN HAVE BONE SCAN AN OUTPATIENT DC TO HOME TODAY SUSPECTED METASTATIC COLON CANCER Physical Exam Vital signs: Vital Signs 06/16/18 12:00 06/16/18 16:00 06/16/18 20:00 Temperature 97.7 F 99.0 F 98.5 F Pulse Rate 79 80 80 Respiratory Rate 18 16 18 Blood Pressure 120/76 127/76 118/65 Pulse Oximetry 96 97 96 06/16/18 23:44 Temperature 98.6 F Pulse Rate 73 Respiratory Rate 19 Blood Pressure 119/59 L Pulse Oximetry 96 Intake & Output 06/16/18 06/17/18 06/17/18 18:59 06:59 18:59 Intake Total 1120 / 1120 1600 / 1600 Balance 1120 / 1120 1600 / 1600 Weight 95.9 kg Intake: IV 1000 / 1000 1100 / 1100 NS Inj 1,000 ML @ 100 mls/hr IV 1000 / 1000 1000 / 1000 .CONT .Q10H ES Rx#:[id number] Rocephin Inj 1,000 MG In NS Inj 100 / 100 100 ML @ 200 mls/hr IV.SIG Q24H ES Rx#:[id number] Oral 120 / 120 500 / 500 Other: # Voids 1 2 Date of Last Bowel Movement 06/15/18 06/15/18 Narrative: General patient in no acute distress, he has on and off nausea and poor appetite otherwise no complaints. HEENT extraocular movements are intact, clear oropharyngeal mucosa, no JVD EOMI , PERRLA SOME SCLERAL ICTERUS Cardiovascular S1-S2 audible, RRR, no murmurs rubs or gallops Respiratory clear to auscultation bilaterally Abdomen soft, nontender, nondistended, normal bowel sounds, no palpable lymphadenopathy. Extremities no edema 2+ distal pulses in bilateral upper and lower extremities, no axillary palpable lymphadenopathy. No inguinal palpable lymphadenopathy. Neuro cranial nerves II through XII intact SKIN SOME JAUNDICE Results - Labs CBC & Chem 7: 06/17/18 06:31 06/17/18 06:31 Laboratory Results - last 24 hr 06/16/18 06/17/18 06/17/18 04:56 06:31 06:31 WBC 8.2 RBC 3.99 L Hgb 12.3 L Hct 35.2 L MCV 88.2 MCH 30.7 MCHC 34.8 RDW 17.3 H Plt Count 242 MPV 9.2 Prelim Diff (Auto) Manual diff required WBC Differential Manual diff final Seg Neuts % (Manual) 77 H Band Neuts % (Manual) 5 Lymphocytes % (Manual) 9 Monocytes % (Manual) 8 Eosinophils % (Manual) 1 Abs Neuts (Manual) 6.7 Differential Comment . Platelet Estimate Normal Platelet Morphology Normal Target Cells 1+ H Sodium 138 Potassium 3.8 Chloride 105 Carbon Dioxide 24.9 Anion Gap 8 BUN 12 Creatinine 0.79 Estimated GFR Greater than 89 Random Glucose 87 Hemoglobin A1c 4.9 Calcium 7.8 L Phosphorus 2.4 L Magnesium 1.8 Total Bilirubin 17.0 H AST 301 H ALT 124 H Alkaline Phosphatase 531 H Total Protein 5.9 L D Albumin 2.1 L - Imaging ITS Impressions Chest CT 06/13/18 00:00 CONCLUSION: 1. Numerous bilateral pulmonary metastasis. 2. Large mass involving the liver. Please see abdomen CT for further details. 3. Mild right hilar adenopathy. Chest X-Ray 06/13/18 17:41 CONCLUSION: Negative noncontrast head CT. Abdomen/Pelvis CT 06/13/18 18:52 CONCLUSION: 1. Diffuse bilateral lung metastatic disease. 2. Large invasive mass involving the right and left lobes of the liver measuring at least 20.2 cm characteristic of neoplastic disease. Hepatocellular carcinoma is the primary consideration. 3. 1.8 cm right adrenal mass. Cholangiopancreatography MRI 06/14/18 00:00 CONCLUSION: 1. Huge mass occupying almost the entire liver measuring 22.3 x 19.9 cm. There is mild intrahepatic biliary ductal dilatation involving the left lobe as well as the right lobe likely secondary to this huge mass which most likely represents hepatocellular carcinoma. There is no significant extrahepatic biliary ductal dilatation. The common bile duct is normal in caliber. 2. Small right adrenal nodule measuring 19 mm is again noted. 3. Innumerable only nodules are noted consistent with metastatic disease to the lungs. 4. T2 signal hyperintensities within the L3, L2 and L1 vertebral bodies which are indeterminate. Metastatic disease is in the differential. Liver Biopsy Ultrasound 06/16/18 00:00 CONCLUSION: 1. Uncomplicated ultrasound guided liver mass biopsy. - Procedures LIVER BIOPSY ON 06-16 Assessment and Plan - Plan This patient is a 67-year-old male with a diagnosis of colon cancer status post proctosigmoidectomy with cholecystectomy by Dr. Puri in July 2013. The patient presented to the emergency department and portal range on 06/13/2018 complaining of jaundice, poor appetite, weight loss of 30 pounds over 3 months, nausea for approximately 3 months. He was found to have a large liver mass and suspected lung metastasis. He was then transferred to the main hospital under our service. 1. Liver mass with obstructive jaundice and bilateral POSSIBLE lung metastatic disease. SP LIVER BIOPSY 06-16 2. Pancreatitis Labs show elevated LFTs which are downtrending from yesterday however still elevated. Patient had an elevated lipase of 1200 which is now normalized. Patient's symptoms are not necessarily consistent with pancreatitis. GI consulted MRCP done which showed a huge mass occupying almost the entire liver measuring 22 x 19.9 cm, intrahepatic ductal dilatation likely secondary to the mass. The findings were concerning for hepatocellular carcinoma. There is also concern for metastatic disease to the L-spine. Small right adrenal nodule also noted. Apparently the patient's MRCP was not completed because he began to feel nauseous during the procedure. We will follow-up with GI and will have them evaluate the image to see if a repeat MRCP is necessary. CA 19 9 elevated, CEA elevated, AFP is normal. We will follow-up with your conditions from GI. Oncology is also evaluated the patient, the patient will likely need biopsy of the liver mass. BONE SCAN HAD BIOPSY OF LIVER MASS ON 06-16 3. Urinary tract infection present on admission Patient is afebrile. WBC count within normal limits. Patient's urinalysis is positive. Started on Rocephin. Urine cultures will be followed up. JAUNDICE WITH SUSPECTED LIVER CANCER-METS OF COLON CANCER REOCCURRENCE POSSIBLE COLON CANCER WITH LIVER AND LUNG METS SCDs for DVT prophylaxis. WANTS TO GO HOME CAN FOLLOW UP WITH DR CUNNINGHAM OUTPATIENT BONE SCAN DC TO HOME TODAY Code Status: FULL CODE Discussed Condition With: RN AND PT AND CM AND FAMILY Discharge Planning: ONCE HAS A TISSUE DIAGNOSIS AND ONCOLOGY CLEARS FOR DISCHARGE
--- NOTE | 2018-06-17 12:01 | P.DS ---
Date of admission: 06/13/18 22:15 Primary care physician: No Primary Care Physician Attending physician on discharge: Marlo Rawls Anticipated date of discharge: 06/17/18 Brief History from admission: Mr. Fish is a very pleasant 67 year old male patient with a history of colon cancer s/p proctosigmoidectomy with cholecystectomy by Dr. Tariq on 07/20/2013 who presented to the ER on 06/13/18 in [place] complaining of jaundice, poor appetite, and nausea x 3 months. He was found to have a large liver mass and the appearance of diffuse bilateral lung metastasis on imaging and was transferred the [facility] under the hospitalist service for ERCP by Dr. Vieira. The patient is seen in his hospital room shortly after arrival from [place]. He reports excessive fatigue, loss of appetite, nausea, and unintentional 30 lb weight loss over the past 3 months. He is supposed to establish with PCP Dr. Beach next week but when he and his noted jaundice yesterday and scleral icterus, they decided he could not weight to be seen. He denies shortness of breath, cough, fever, chills, vomiting, or diarrhea. He reports pasty white stools over the past few days. He also reports left flank pain. UA suggestive of UTI. The patient is adopted, family history for family of origin is unknown. He has one daughter who is alive, well, and healthy. Smoked 2 PPD x 27 years, quit 1995 and no ETOH since 1995. Patient update on day of discharge: Chief Complaint: Jaundice History of Present Illness: Mr. Fish is a very pleasant 67 year old male patient with a history of colon cancer s/p proctosigmoidectomy with cholecystectomy by Dr. Tariq on 07/20/2013 who presented to the ER on 06/13/18 in [place] complaining of jaundice, poor appetite, and nausea x 3 months. He was found to have a large liver mass and the appearance of diffuse bilateral lung metastasis on imaging and was transferred the [facility] hospital under the hospitalist service for ERCP by Dr. Vieira. The patient is seen in his hospital room shortly after arrival from [place]. He reports excessive fatigue, loss of appetite, nausea, and unintentional 30 lb weight loss over the past 3 months. He is supposed to establish with PCP Dr. Beach next week but when he and his noted jaundice yesterday and scleral icterus, they decided he could not weight to be seen. He denies shortness of breath, cough, fever, chills, vomiting, or diarrhea. He reports pasty white stools over the past few days. He also reports left flank pain. UA suggestive of UTI. The patient is adopted, family history for family of origin is unknown. He has one daughter who is alive, well, and healthy. Smoked 2 PPD x 27 years, quit 1995 and no ETOH since 1995. - Patient complaint of poor appetite, on and off nausea. No other complaints. 2 SEEN BY GI AND ONCOLOGY DR LOPEZ NEED A TISSUE BIOPSY TO HELP MAKE DIAGNOSIS STILL HAS SOME ABDOMINAL PAIN HAD MRCP YESTERDAY NEEDS IR FOR TISSUE DIAGNOSIS OF LIVER HAS HX OF COLON CANCER- POSSIBLE REOCCURRENCE VS NEW PRIMARY 06-16 HAD LIVER BIOPSY WITH IR TODAY FOR BONE SCAN TOMORROW [facility] RN AND PT AND FAMILY AM LABS 06-17 DOES NOT WANT BONE SCAN WANTS TO GO HOME TODAY [facility] RN AND PT AND DC TO HOME TODAY FOLLOW UP WITH DR LOPEZ CAN HAVE BONE SCAN AN OUTPATIENT DC TO HOME TODAY SUSPECTED METASTATIC COLON CANCER DS: Diagnosis - Discharge Diagnosis (1) Jaundice Status: Acute (2) Metastatic colon cancer to liver Status: Acute (3) Primary colon cancer with metastasis to other site Status: Acute (4) UTI (urinary tract infection) Status: Acute DS: Medications - Discharge Medications Prescriptions: cefuroxime axetil 500 mg PO Q12H #6 tab ondansetron [Zofran ODT] 8 mg PO TID PRN #30 tab PRN Reason: Nausea DS: Summary Hospital Course: Chief Complaint: Jaundice History of Present Illness: Mr. Fish is a very pleasant 67 year old male patient with a history of colon cancer s/p proctosigmoidectomy with cholecystectomy by Dr. Tariq on 07/20/2013 who presented to the ER on 06/13/18 in [place] complaining of jaundice, poor appetite, and nausea x 3 months. He was found to have a large liver mass and the appearance of diffuse bilateral lung metastasis on imaging and was transferred the main hospital under the hospitalist service for ERCP by Dr. Vieira. The patient is seen in his hospital room shortly after arrival from [place]. He reports excessive fatigue, loss of appetite, nausea, and unintentional 30 lb weight loss over the past 3 months. He is supposed to establish with PCP Dr. Beach next week but when he and his noted jaundice yesterday and scleral icterus, they decided he could not weight to be seen. He denies shortness of breath, cough, fever, chills, vomiting, or diarrhea. He reports pasty white stools over the past few days. He also reports left flank pain. UA suggestive of UTI. The patient is adopted, family history for family of origin is unknown. He has one daughter who is alive, well, and healthy. Smoked 2 PPD x 27 years, quit 1995 and no ETOH since 1995. - Patient complaint of poor appetite, on and off nausea. No other complaints. 2 SEEN BY GI AND ONCOLOGY DR LOPEZ NEED A TISSUE BIOPSY TO HELP MAKE DIAGNOSIS STILL HAS SOME ABDOMINAL PAIN HAD MRCP YESTERDAY NEEDS IR FOR TISSUE DIAGNOSIS OF LIVER HAS HX OF COLON CANCER- POSSIBLE REOCCURRENCE VS NEW PRIMARY 06-16 HAD LIVER BIOPSY WITH IR TODAY FOR BONE SCAN TOMORROW [facility] RN AND PT AND FAMILY AM LABS 06-17 DOES NOT WANT BONE SCAN WANTS TO GO HOME TODAY [facility] RN AND PT AND DC TO HOME TODAY FOLLOW UP WITH DR LOPEZ CAN HAVE BONE SCAN AN OUTPATIENT DC TO HOME TODAY SUSPECTED METASTATIC COLON CANCER - Time Spent with Patient Total time spent providing and/or coordinating discharge services: Greater than 30 minutes - Quality: VTE Deep Vein Thrombosis/Pulmonary Embolism Present on Admission: No Exam Vital signs: Vital Signs 06/16/18 12:00 06/16/18 16:00 06/16/18 20:00 Temperature 97.7 F 99.0 F 98.5 F Pulse Rate 79 80 80 Respiratory Rate 18 16 18 Blood Pressure 120/76 127/76 118/65 Pulse Oximetry 96 97 96 06/16/18 23:44 Temperature 98.6 F Pulse Rate 73 Respiratory Rate 19 Blood Pressure 119/59 L Pulse Oximetry 96 Intake & Output 06/16/18 06/17/18 06/17/18 18:59 06:59 18:59 Intake Total 1120 / 1120 1600 / 1600 Balance 1120 / 1120 1600 / 1600 Weight 95.9 kg Intake: IV 1000 / 1000 1100 / 1100 NS Inj 1,000 ML @ 100 mls/hr IV 1000 / 1000 1000 / 1000 .CONT .Q10H ES Rx#:[id number] Rocephin Inj 1,000 MG In NS Inj 100 / 100 100 ML @ 200 mls/hr IV.SIG Q24H ES Rx#:[id number] Oral 120 / 120 500 / 500 Other: # Voids 1 2 Date of Last Bowel Movement 06/15/18 06/15/18 Narrative: General patient in no acute distress, he has on and off nausea and poor appetite otherwise no complaints. HEENT extraocular movements are intact, clear oropharyngeal mucosa, no JVD EOMI , PERRLA SOME SCLERAL ICTERUS Cardiovascular S1-S2 audible, RRR, no murmurs rubs or gallops Respiratory clear to auscultation bilaterally Abdomen soft, nontender, nondistended, normal bowel sounds, no palpable lymphadenopathy. Extremities no edema 2+ distal pulses in bilateral upper and lower extremities, no axillary palpable lymphadenopathy. No inguinal palpable lymphadenopathy. Neuro cranial nerves II through XII intact SKIN SOME JAUNDICE Results Procedures completed during hospitalization: LIVER BIOPSY ON 06-16 Completed studies during hospitalization: Laboratory Results CBC w Diff Slide review pending 06/13/18 17:30 WBC 8.2 th/mm3 (4.0-11.0) 06/17/18 06:31 RBC 3.99 mil/mm3 (4.50-5.90) L 06/17/18 06:31 Hgb 12.3 gm/dL (13.0-17.0) L 06/17/18 06:31 Hct 35.2 % (39.0-51.0) L 06/17/18 06:31 MCV 88.2 fL (80.0-100.0) 06/17/18 06:31 MCH 30.7 pg (27.0-34.0) 06/17/18 06:31 MCHC 34.8 % (32.0-36.0) 06/17/18 06:31 RDW 17.3 % (11.6-17.2) H 06/17/18 06:31 Plt Count 242 th/mm3 (150-450) 06/17/18 06:31 MPV 9.2 fL (7.0-11.0) 06/17/18 06:31 Prelim Diff (Auto) Manual diff required 06/17/18 06:31 WBC Differential Manual diff final 06/17/18 06:31 Seg Neuts % (Manual) 77 % (16-70) H 06/17/18 06:31 Band Neuts % (Manual) 5 % (0-6) 06/17/18 06:31 Lymphocytes % (Manual) 9 % (9-44) 06/17/18 06:31 Monocytes % (Manual) 8 % (0-8) 06/17/18 06:31 Eosinophils % (Manual) 1 % (0-4) 06/17/18 06:31 Basophils % (Manual) 2 % (0-2) 06/16/18 04:56 Abs Neuts (Manual) 6.7 th/mm3 (1.8-7.7) 06/17/18 06:31 Differential Comment . 06/17/18 06:31 Platelet Estimate Normal (Normal) 06/17/18 06:31 Platelet Morphology Normal (Normal) 06/17/18 06:31 RBC Morphology Normal (Normal) 06/14/18 06:25 Target Cells 1+ (None) H 06/17/18 06:31 PT 12.5 sec (9.8-11.6) H 06/16/18 04:56 INR 1.2 Ratio 06/16/18 04:56 APTT 28.4 sec (23.4-31.7) 06/13/18 17:30 Sodium 138 meq/L (136-145) 06/17/18 06:31 Potassium 3.8 meq/L (3.5-5.1) 06/17/18 06:31 Chloride 105 meq/L (98-107) 06/17/18 06:31 Carbon Dioxide 24.9 meq/L (21.0-32.0) 06/17/18 06:31 Anion Gap 8 meq/L (5-15) 06/17/18 06:31 BUN 12 mg/dL (7-18) 06/17/18 06:31 Creatinine 0.79 mg/dL (0.60-1.30) 06/17/18 06:31 Estimated GFR Greater than 89 mL/min (>89) 06/17/18 06:31 Random Glucose 87 mg/dL (74-106) 06/17/18 06:31 Hemoglobin A1c 4.9 % (4.3-6.0) 06/16/18 04:56 Calcium 7.8 mg/dL (8.5-10.1) L 12/04/18 06:31 Phosphorus 2.4 mg/dL (2.5-4.9) L 06/17/18 06:31 Magnesium 1.8 mg/dL (1.5-2.5) 06/17/18 06:31 Total Bilirubin 17.0 mg/dL (0.2-1.0) H 06/17/18 06:31 AST 301 U/L (15-37) H 06/17/18 06:31 ALT 124 U/L (12-78) H 06/17/18 06:31 Alkaline Phosphatase 531 U/L (45-117) H 06/17/18 06:31 Ammonia 31 mcmol/L (11-32) 06/16/18 04:56 Total Creatine Kinase 542 U/L (39-308) H 06/13/18 17:30 CK-MB (CK-2) 2.4 ng/mL (0.5-3.6) 06/13/18 17:30 CK-MB (CK-2) % 0.4 % (0.0-4.0) 06/13/18 17:30 Troponin I Less than 0.02 ng/mL (0.02-0.05) L 06/13/18 17:30 Total Protein 5.9 g/dL (6.4-8.2) L D 06/17/18 06:31 Albumin 2.1 g/dL (3.4-5.0) L 06/17/18 06:31 Amylase 32 U/L (25-115) 06/16/18 04:56 Lipase 147 U/L (73-393) 06/16/18 04:56 Tumor Marker AFP 2.1 ng/mL (0.5-8.0) 06/15/18 06:36 Carcinoembryonic Ag 1426.4 ng/mL (0.2-5.0) H 06/15/18 06:36 CA 19-9 Antigen 951.9 U/mL (0.0-35.0) H 06/15/18 06:36 TSH 2.690 uIU/mL (0.358-3.740) 06/16/18 04:56 Free T4 1.40 ng/dL (0.76-1.46) 06/16/18 04:56 Urine Color Brown (Yellw/Straw) H 06/13/18 17:10 Urine Clarity Cloudy (Clear) H 06/13/18 17:10 Urine pH 5.0 (5.0-8.5) 06/13/18 17:10 Ur Specific [place] 1.025 (1.002-1.035) 06/13/18 17:10 Urine Protein 100 mg/dL (Neg-Trace) H 06/13/18 17:10 Urine Glucose (UA) 100 mg/dL (Negative) H 06/13/18 17:10 Urine Ketones 15 mg/dL (Negative) H 06/13/18 17:10 Urine Occult Blood Negative (Negative) 06/13/18 17:10 Urine Nitrate Positive (Negative) H 06/13/18 17:10 Urine Bilirubin Large (Negative) H 06/13/18 17:10 Urine Ictotest Positive (Negative) H 06/13/18 17:10 Urine Urobilinogen 1.0 mg/dL (Less than 2) 06/13/18 17:10 Ur Leukocyte Esterase Negative (Negative) 06/13/18 17:10 Urine RBC 0-3 /hpf (0-3) 06/13/18 17:10 Urine WBC 9-20 /hpf (0-5) H 06/13/18 17:10 Ur Squamous Epith Cells 0-5 /hpf (0-5) 06/13/18 17:10 Amorphous Sediment Few /hpf (None) H 06/13/18 17:10 Urine Bacteria Moderate /hpf (None) H 06/13/18 17:10 Hyaline Casts 0-3 /lpf (0-3) 06/13/18 17:10 Urine Mucus Many /lpf (Occasional) H 06/13/18 17:10 Micro UA Comment Culture indicated 06/13/18 17:10 Ur Microscopic Review Microscopic reviewed 06/13/18 17:10 Urine Culture Comments Culture indicated 06/13/18 17:10 Blood Type O Positive 06/13/18 17:30 Antibody Screen Negative 06/13/18 17:[address] 06/13/18 00:00 CONCLUSION: 1. Numerous bilateral pulmonary metastasis. 2. Large mass involving the liver. Please see abdomen CT for further details. 3. Mild right hilar adenopathy. Chest X-Ray 06/13/18 17:41 CONCLUSION: Negative noncontrast head CT. Abdomen/Pelvis CT 06/13/18 18:52 CONCLUSION: 1. Diffuse bilateral lung metastatic disease. 2. Large invasive mass involving the right and left lobes of the liver measuring at least 20.2 cm characteristic of neoplastic disease. Hepatocellular carcinoma is the primary consideration. 3. 1.8 cm right adrenal mass. Cholangiopancreatography MRI 06/14/18 00:00 CONCLUSION: 1. Huge mass occupying almost the entire liver measuring 22.3 x 19.9 cm. There is mild intrahepatic biliary ductal dilatation involving the left lobe as well as the right lobe likely secondary to this huge mass which most likely represents hepatocellular carcinoma. There is no significant extrahepatic biliary ductal dilatation. The common bile duct is normal in caliber. 2. Small right adrenal nodule measuring 19 mm is again noted. 3. Innumerable only nodules are noted consistent with metastatic disease to the lungs. 4. T2 signal hyperintensities within the L3, L2 and L1 vertebral bodies which are indeterminate. Metastatic disease is in the differential. Liver Biopsy Ultrasound 06/16/18 00:00 CONCLUSION: 1. Uncomplicated ultrasound guided liver mass biopsy. Labs on day of discharge: Labs from last 24 hours 06/17/18 06/17/18 06/16/18 06:31 06:31 04:56 WBC 8.2 RBC 3.99 L Hgb 12.3 L Hct 35.2 L MCV 88.2 MCH 30.7 MCHC 34.8 RDW 17.3 H Plt Count 242 MPV 9.2 Prelim Diff (Auto) Manual diff required WBC Differential Manual diff final Seg Neuts % (Manual) 77 H Band Neuts % (Manual) 5 Lymphocytes % (Manual) 9 Monocytes % (Manual) 8 Eosinophils % (Manual) 1 Abs Neuts (Manual) 6.7 Differential Comment . Platelet Estimate Normal Platelet Morphology Normal Target Cells 1+ H Sodium 138 Potassium 3.8 Chloride 105 Carbon Dioxide 24.9 Anion Gap 8 BUN 12 Creatinine 0.79 Estimated GFR Greater than 89 Random Glucose 87 Hemoglobin A1c 4.9 Calcium 7.8 L Phosphorus 2.4 L Magnesium 1.8 Total Bilirubin 17.0 H AST 301 H ALT 124 H Alkaline Phosphatase 531 H Total Protein 5.9 L D Albumin 2.1 L - Impressions ITS Impressions Chest CT 06/13/18 00:00 CONCLUSION: 1. Numerous bilateral pulmonary metastasis. 2. Large mass involving the liver. Please see abdomen CT for further details. 3. Mild right hilar adenopathy. Chest X-Ray 06/13/18 17:41 CONCLUSION: Negative noncontrast head CT. Abdomen/Pelvis CT 06/13/18 18:52 CONCLUSION: 1. Diffuse bilateral lung metastatic disease. 2. Large invasive mass involving the right and left lobes of the liver measuring at least 20.2 cm characteristic of neoplastic disease. Hepatocellular carcinoma is the primary consideration. 3. 1.8 cm right adrenal mass. Cholangiopancreatography MRI 06/14/18 00:00 CONCLUSION: 1. Huge mass occupying almost the entire liver measuring 22.3 x 19.9 cm. There is mild intrahepatic biliary ductal dilatation involving the left lobe as well as the right lobe likely secondary to this huge mass which most likely represents hepatocellular carcinoma. There is no significant extrahepatic biliary ductal dilatation. The common bile duct is normal in caliber. 2. Small right adrenal nodule measuring 19 mm is again noted. 3. Innumerable only nodules are noted consistent with metastatic disease to the lungs. 4. T2 signal hyperintensities within the L3, L2 and L1 vertebral bodies which are indeterminate. Metastatic disease is in the differential. Liver Biopsy Ultrasound 06/16/18 00:00 CONCLUSION: 1. Uncomplicated ultrasound guided liver mass biopsy. Discharge Plan - Discharge Disposition Patient Disposition: Discharge Home - Discharge Condition Condition: Fair - Discharge Order Discharge Orders: Discharge Order (Routine); Ordered 06/17/18 Ordered By: Marlo Rawls Oncology Clear for Discharge (Routine); Ordered 06/17/18 Ordered By: Namrata Byrd - Discharge Details Anticipated Discharge Date: 06/17/18 Discharge Comment: DC TO HOME TODAY - Physicians Team Primary Care Provider: Primary Care Physici,No Attending Provider: Marlo Rawls Other Providers: Aravind Vieira MD ; Chapo Lopez MD
--- NOTE | 2018-06-17 12:51 | P.PNGI ---
Subjective Interval history: Patient awake and alert resting in bed Denies any discomfort Family at bedside Patient reporting plan discharge today with follow-up with oncology and PCP Physical Exam Vital signs: Vital Signs 06/16/18 16:00 06/16/18 20:00 06/16/18 23:44 Temperature 99.0 F 98.5 F 98.6 F Pulse Rate 80 80 73 Respiratory Rate 16 18 19 Blood Pressure 127/76 118/65 119/59 L Pulse Oximetry 97 96 96 Intake & Output 06/16/18 06/17/18 06/17/18 18:59 06:59 18:59 Intake Total 1120 / 1120 1600 / 1600 Balance 1120 / 1120 1600 / 1600 Weight 95.9 kg Intake: IV 1000 / 1000 1100 / 1100 NS Inj 1,000 ML @ 100 mls/hr IV 1000 / 1000 1000 / 1000 .CONT .Q10H ES Rx#:[id number] Rocephin Inj 1,000 MG In NS Inj 100 / 100 100 ML @ 200 mls/hr IV.SIG Q24H ES Rx#:[id number] Oral 120 / 120 500 / 500 Other: # Voids 1 2 Date of Last Bowel Movement 06/15/18 06/15/18 - Constitutional chronically ill appearing - Routine HEENT Exam Head: Present: normocephalic Eye: Present: conjunctival icterus - Routine Respiratory Exam Present: CTA bilaterally - Routine Abdominal Exam Present: soft, normoactive bowel sounds. Absent: tenderness, distended - Routine Skin Exam Present: dry, warm, jaundice - Routine Neurological Exam Present: alert Results - Labs CBC & Chem 7: 06/17/18 06:31 06/17/18 06:31 Laboratory Results - last 24 hr 06/16/18 06/17/18 06/17/18 04:56 06:31 06:31 WBC 8.2 RBC 3.99 L Hgb 12.3 L Hct 35.2 L MCV 88.2 MCH 30.7 MCHC 34.8 RDW 17.3 H Plt Count 242 MPV 9.2 Prelim Diff (Auto) Manual diff required WBC Differential Manual diff final Seg Neuts % (Manual) 77 H Band Neuts % (Manual) 5 Lymphocytes % (Manual) 9 Monocytes % (Manual) 8 Eosinophils % (Manual) 1 Abs Neuts (Manual) 6.7 Differential Comment . Platelet Estimate Normal Platelet Morphology Normal Target Cells 1+ H Sodium 138 Potassium 3.8 Chloride 105 Carbon Dioxide 24.9 Anion Gap 8 BUN 12 Creatinine 0.79 Estimated GFR Greater than 89 Random Glucose 87 Hemoglobin A1c 4.9 Calcium 7.8 L Phosphorus 2.4 L Magnesium 1.8 Total Bilirubin 17.0 H AST 301 H ALT 124 H Alkaline Phosphatase 531 H Total Protein 5.9 L D Albumin 2.1 L - Procedures LIVER BIOPSY ON 06-16 Assessment and Plan - Plan A 67-year-old male patient with past medical history of colorectal cancer, status post resection in 2013, who presented with fatigue, loss of energy and a significant unintentional weight loss of 30 pounds over 3 months and deep jaundice, found to have a with the following problems: 1. Increase in liver enzymes with a bilirubin of 17.5 and increase in transaminitis. 2. Increase in lipase level, although the patient is not having any symptoms compatible with pancreatitis. 3. CT scan showing a lesion in the liver that is a large invasive mass involving the right and left lobe of the liver, measured around 20 cm with characteristic features of neoplasm. Primary lesion like hepatocellular carcinoma is a possibility, but no comment on the biliary tree. 4. MRCP showing minimal dilation of intrahepatic ducts and normal CBD 5. Elevated tumor markers. RECOMMENDATIONS: Limited value for stenting with normal nearly biliary tree, will need follow up with oncology service for possible referral to [facility] or [facility]. Continue supportive care. 06/17/2018 Patient denies any discomfort at this time Denies nausea or vomiting Reports plan for discharge home today with follow-up with PCP and oncology WBC 8.2 hemoglobin 12.3 hematocrit 35.2 Total bilirubin 17 AST 301 ALT 124 alk phos 531 Plan Diet as tolerated Avoid hepatotoxins Patient for discharge home to follow-up with oncology Supportive care GI will sign off at this time, patient stable for discharge home This patient has been seen by myself and and this note is written on his behalf - Attending Attestation [email or web address]
[2018-06-17 13:42] VITALS: BP 115/76; PULSE 86; RESP 16; TEMP 98; O2SAT 97
== END 2018-06-17 13:43 | disposition home or self-care (01) ==
LOC: PHED 16:49 → PHEDA 22:15 → N07 06-14 00:25
PROVIDERS: ADMIT Hospitalist; ATTEND Hospitalist